=== PATIENT | female | born 1985 | race Hispanic/Latino ===

== ENCOUNTER 2021-11-08 17:40 | Emergency (ER) | payer SELFPAY ==
[2021-11-08] VITALS (10 sets, daily range): BP systolic 113–136; BP diastolic 86–95; PULSE 94–121; RESP 13–27; TEMP 37; O2SAT 99–100
--- NOTE | 2021-11-08 18:15 | PC.NURSE ---
PA at bedside for pt assessment.
--- NOTE | 2021-11-08 18:30 | ED.GENADULT ---
HPI - General Adult General Chief complaint: Unspecified Stated complaint: mouth sores Time Seen by Provider: 11/08/21 17:55 Source: patient Mode of arrival: ambulatory Limitations: no limitations History of Present Illness HPI narrative: This is a 35 year old female that presents to the ER for painful ulcerations noted in her mouth. Ongoing over the last couple of days. Reports ulcerations on the lip, tongue and some gingival irritation. Reports her only medical history is of asthma. Reports she was recently on Amoxicillin for a sore throat. No other new medications recently. Denies any concern for STDs. Denies fevers. Related Data Allergies Allergy/AdvReac Type Severity Reaction Status Date / Time No Known Allergies Allergy Verified 11/08/21 17:54 Review of Systems Review of Systems: CONSTITUTIONAL: Denies fever ENT: Reports sore throat All systems reviewed & are unremarkable except as noted in HPI and below PMFSH Past Medical History Medical History (Updated 11/08/21 @ 21:40 by Giana Alex PA-C) History of asthma Social History Social History (Updated 11/08/21 @ 18:34 by Giana Alex PA-C) Smoking status: Never smoker Exam Narrative: GENERAL: Well-appearing, well-nourished, and in no acute distress. HEAD: Normocephalic, atraumatic. EYES: EOMI. ENT: Nares clear, no rhinorrhea or epistaxis. Mucous membranes moist. Small ulcerations on an erythematous base noted to the lower lip and on the tongue. Gingival irritation is also noted. Oropharynx without tonsillar hypertrophy exudate or other lesions. Bilateral TMs pearly edge non-bulging NECK: Supple. No adenopathy or masses. CHEST: Clear to auscultation. No respiratory distress. No wheezes rales or rhonchi HEART: Regular rate and rhythm. No murmur heard. Normal peripheral pulses. EXTREMITIES: Normal range of motion. No edema. SKIN: Warm, dry NEURO: No focal deficits. Alert and oriented x3. PSYCH: Normal mood and affect Course Vital Signs Vital signs: Vital Signs Temperature 98.6 F 11/08/21 17:52 Pulse Rate 121 H 11/08/21 17:52 Respiratory Rate 16 11/08/21 17:52 Blood Pressure 136/92 H 11/08/21 17:52 Pulse Oximetry 100 11/08/21 17:52 Temperature 98.6 F 11/08/21 17:52 Pulse Rate 111 H 11/08/21 18:16 Respiratory Rate 27 H 11/08/21 18:16 Blood Pressure 113/95 H 11/08/21 18:15 Pulse Oximetry 99 11/08/21 18:16 Medical Decision Making MDM Narrative Medical decision making narrative: Patient presents to the emergency department for several ulcerations noted in the mouth. Reportedly is otherwise healthy largely, other than history of asthma. She is afebrile and nontoxic-appearing. Tachycardic upon arrival, this normalized without intervention. CBC shows mild normocytic anemia with hemoglobin of 11.3. Metabolic panel without concerning findings. HIV screen is negative. RPR and HSV culture was sent. She did not report any overt concerns for STDs. Patient will be treated for ulcerations with Magic mouth wash. Was instructed to have follow-up with primary care doctor and ENT. She was given warnings to return to the ER Vital Signs Vital Signs: Vital Signs Temperature 98.6 F 11/08/21 17:52 Pulse Rate 121 H 11/08/21 17:52 Respiratory Rate 16 11/08/21 17:52 Blood Pressure 136/92 H 11/08/21 17:52 Pulse Oximetry 100 11/08/21 17:52 Temperature 98.6 F 11/08/21 17:52 Pulse Rate 111 H 11/08/21 18:16 Respiratory Rate 27 H 11/08/21 18:16 Blood Pressure 113/95 H 11/08/21 18:15 Pulse Oximetry 99 11/08/21 18:16 Lab Data Lab results reviewed: Yes I reviewed the patient's lab results. Result diagrams: 11/08/21 18:46 11/08/21 18:46 Labs: Lab Results 11/08/21 11/08/21 11/08/21 Range/Units 18:46 18:46 18:46 WBC 5.8 (4.5-10.0) K/mm3 RBC 4.20 (4.2-5.4) M/mm3 Hgb 11.3 L (12.0-15.0) g/dL Hct 36.3 L (37.0-47.0) % MCV 86.4 (80-10
[2021-11-08 19:59] LABS: Basophils Percent Auto 0.3 % (0.2-1.2); Eosinophils Percent Auto 0.2 % (0-4.4); Hematocrit 36.3 % (37.0-47.0); Hemoglobin 11.3 g/dL (12.0-15.0); Immature Granulocyte Absolute 0.01 K/mm3 (0.00-0.031); Immature Granulocyte Percent A 0.2 % (0-0.5); Lymphocytes Absolute Auto 1.78 K/mm3 (0.9-3.2); Lymphocytes Percent Auto 30.7 % (18.3-44.2); Mean Corpuscular HGB Conc 31.1 g/dl (32-36); Mean Corpuscular Hemoglobin 26.9 pg (26-34); Mean Corpuscular Volume 86.4 fl (80-100); Mean Platelet Volume 12.3 fl (7.4-10.4); Monocytes Absolute Auto 0.4 K/mm3 (0.1-0.6); Monocytes Percent Auto 6.6 % (2.6-8.5); Neutrophils Absolute Auto 3.6 K/mm3 (1.3-6.7); Platelet Count Result 224 k/mm3 (150-375); Red Cell Distribution Width 13.9 % (11.5-14.5); White Blood Count 5.8 K/mm3 (4.5-10.0)
[2021-11-08 20:10] LABS: Alanine Aminotransferase 13 U/L (6-35); Albumin Level 4.4 g/dL (3.5-5.1); Alkaline Phosphatase 61 U/L (38-126); Anion Gap 7 mmol/L (8-16); Aspartate Amino Transferase 22 U/L (14-36); Bilirubin,Total 0.3 mg/dL (0.2-1.3); Blood Urea Nitrogen 11 mg/dL (7-17); Calcium 8.4 mg/dL (8.4-10.2); Carbon Dioxide 27 mmol/L (22-30); Chloride 104 mmol/L (98-107); Estimated CRCL calculation 114 ml/min; Estimated Glomerular Filt Rate > 60; Glucose 100 mg/dL (65-110); Sodium 138 mmol/L (137-145)
[2021-11-08 20:51] LABS: HIV 1/2 Ab P24 Ag Result Negative (Negative)
[2021-11-09 07:50] LABS: Rapid Plasma Reagin Non-Reactive (NonReactive)
== END 2021-11-08 21:51 | disposition home or self-care (01) ==
PROVIDERS: Physician Assistant; Emergency Provider Emergency Medicine
DX: K12.0 Recurrent oral aphthae (principal); J45.909 Unspecified asthma, uncomplicated
CPT/HCPCS: 36415; 80053; 85025; 86592; 86703; 87255; 99283; G0432

== ENCOUNTER 2022-05-29 09:45 | Emergency (ER) | payer SELFPAY ==
--- NOTE | ~2022-05-29 | CT_ITS ---
EXAMINATION: CT abdomen pelvis w con DATE: 05/29/2022 11:06 INDICATION: Left upper quadrant tenderness. TECHNIQUE: Computed tomography (CT) of the abdomen and pelvis was performed with 100 cc Omnipaque 350 intravenous contrast. The dose-length product was 186.37 mGy-cm. Automated exposure control and iter ative reconstruction technique were employed. COMPARISON: None. FINDINGS: Lung bases are unremarkable. Heart size normal. No significant pleural or pericardial effus ion. No significant vascular abnormality. No lymphadenopathy. Fatty infiltration of the liver. Spleen, pancreas, adrenal glands and right kidney are unremarkable. There is subcentimeter hypodensities of the left kidney, most likely benign, although too small to ch aracterize. Gallbladder is present. Nonobstructive bowel gas pattern. Endometrium is thickened measur ing 2.6 cm. Trace free fluid in the pelvis. There are are coarse calcifications in the right adnexa o f uncertain clinical significance. Mild lumbar spondylosis. IMPRESSION: 1. No acute abdominal abnormality. 2: Thickened endometrium measuring 2.6 cm with trace fluid in the adnexa. 3: Hepatic steatosis. Reviewed, dictated and finalized at location A. ER WORKER POWER UNIT OPERATOR
--- NOTE | ~2022-05-29 | US_ITS ---
EXAMINATION: US pelvic complete DATE: 05/29/2022 12:35 INDICATION: Pelvic pain. Comparison: CT dated 05/29/2022. TECHNIQUE: Multiple transabdominal sonographic images of the pelvis performed. Patient not sexually a ctive. No transvaginal examination performed. FINDINGS: The uterus measures 9.2 x 4.8 x 6 cm. The endometrial complex is not well delineated. There are right adnexal calcifications. The right ovary measures 2.4 x 1.8 x 1.3 cm. Small amount of right adnexal fluid. The left ovary measures 3.1 x 2.2 x 3.6 cm. There are small follicles in each o vary. Normal doppler signal in both ovaries. There is no free fluid in the pelvis. There are no abnormal masses seen on either side. IMPRESSION: 1. Trace fluid in the adnexa. Endometrium not well visualized for measurement. Reviewed, dictated and finalized at location A. IONAL BELT MOLD ASSEMBLER
[2022-05-29 09:48] VITALS: BP 131/91; PULSE 114; RESP 17; TEMP 37.1; O2SAT 100
--- NOTE | 2022-05-29 10:06 | ED.ABDPAIN ---
HPI - Abdominal Pain General Chief Complaint: Abdominal Pain Stated Complaint: Left Flank pain/ Pelvic Pain Time Seen by Provider: 05/29/22 09:48 History of Present Illness HPI narrative: Patient is a 36-year-old female who presents ER with abdominal pain and flank pain. Ongoing for 3 days. Increasing in intensity over the each day. Associate with diarrhea 3 times a day. Has some nausea. No urinary frequency urgency or dysuria. No vaginal bleeding or vaginal discharge. Has not found any alleviating factors. Related Data Allergies Allergy/AdvReac Type Severity Reaction Status Date / Time No Known Allergies Allergy Verified 11/08/21 17:54 Review of Systems Review of Systems: All systems reviewed & are unremarkable except as noted in HPI and below Constitutional: Constitutional: Denies chills, Denies fatigue and Denies fever(s) ENT: Denies nasal congestion and Denies sore throat Gastrointestinal: Gastrointestinal: Reports abdominal pain, Reports diarrhea, Reports nausea and Denies vomiting Genitourinary: Genitourinary: Denies nocturia, Denies dysuria and Reports flank pain PMFSH Past Medical History Medical History (Updated 05/29/22 @ 13:59 by Shay Flores MD) History of asthma Social History Social History (Updated 11/08/21 @ 18:34 by Giana Alex PA-C) Smoking status: Never smoker Exam Narrative: GENERAL: Well-appearing, well-nourished, and in no acute distress. HEAD: Normocephalic, atraumatic. EYES: PERRL and EOMI. ENT: Mucous membranes moist. CHEST: Clear to auscultation. No respiratory distress. HEART: Regular rate and rhythm. Normal peripheral pulses. ABDOMEN: Soft, tender palpation with guarding in the left upper quadrant and right lower quadrant nondistended. EXTREMITIES: Normal range of motion. No edema. SKIN: Warm, dry, no rash. NEURO: Alert and oriented x3. PSYCH: Normal mood and affect. Course Course Emergency Course: Pain resolved with morphine. Patient informed of results. Symptoms felt to be related to combination of diarrhea and ruptured ovarian cyst. Discharge home. Patient comfortable with plan and has no additional concerns. Patient was hydrated as well. Vital Signs Vital signs: Vital Signs Temperature 98.8 F 05/29/22 09:48 Pulse Rate 114 H 05/29/22 09:48 Respiratory Rate 17 05/29/22 09:48 Blood Pressure 131/91 H 05/29/22 09:48 Pulse Oximetry 100 05/29/22 09:48 Oxygen Delivery Room Air 05/29/22 09:48 Temperature 98.8 F 05/29/22 09:48 Pulse Rate 70 05/29/22 14:00 Respiratory Rate 16 05/29/22 14:00 Blood Pressure 132/70 05/29/22 14:00 Pulse Oximetry 98 05/29/22 14:00 Oxygen Delivery Room Air 05/29/22 09:48 MDM - Abdominal Pain Lab Data 05/29/22 10:06 05/29/22 10:06 Labs: Lab Results 05/29/22 05/29/22 05/29/22 Range/Units 10:06 10:06 10:15 WBC 7.7 (4.5-10.0) K/mm3 RBC 4.47 (4.2-5.4) M/mm3 Hgb 11.6 L (12.0-15.0) g/dL Hct 37.5 (37.0-47.0) % MCV 83.9 (80-100) fl MCH 26.0 (26-34) pg MCHC 30.9 L (32-36) g/dl RDW 13.6 (11.5-14.5) % Plt Count 281 (150-375) k/mm3 MPV 12.1 H (7.4-10.4) fl Immature Gran % (Auto) 0.3 (0-0.5) % Neut % (Auto) 73.3 H (45.5-73.1) % Lymph % (Auto) 19.6 (18.3-44.2) % [place] % (Auto) 5.6 (2.6-8.5) % Eos % (Auto) 0.7 (0-4.4) % Baso % (Auto) 0.5 (0.2-1.2) % Lymph # (Auto) 1.50 (0.9-3.2) K/mm3 [place] # (Auto) 0.4 (0.1-0.6) K/mm3 Eos # (Auto) 0.1 (0-0.3) K/mm3 Baso # (Auto) 0.0 (0.0-0.1) K/mm3 Abs Immat Gran (auto) 0.02 (0.00-0.031) K/mm3 Absolute Neuts (auto) 5.6 (1.3-6.7) K/mm3 Absolute Nucleated RBC 0.0 (0.0-0.012) K/mm3 Nucleated RBC % 0.0 (0.0-0.2) % Sodium 138 (137-145) mmol/L Potassium 3.8 (3.4-5.0) mmol/L Chloride 105 (98-107) mmol/L Carbon Dioxide 26 (22-30) mmol/L Anion Gap 7 L (8-16) mmol/L BUN 15 (7-17
[2022-05-29] MEDS: SODIUM CHLORIDE 0.9% IV 1,000 ML 999 ML IV CONT (10:30)
[2022-05-29 10:31] LABS: Basophils Percent Auto 0.5 % (0.2-1.2); Eosinophils Absolute Auto 0.1 K/mm3 (0-0.3); Eosinophils Percent Auto 0.7 % (0-4.4); Hematocrit 37.5 % (37.0-47.0); Hemoglobin 11.6 g/dL (12.0-15.0); Immature Granulocyte Absolute 0.02 K/mm3 (0.00-0.031); Immature Granulocyte Percent A 0.3 % (0-0.5); Lymphocytes Percent Auto 19.6 % (18.3-44.2); Mean Corpuscular HGB Conc 30.9 g/dl (32-36); Mean Corpuscular Volume 83.9 fl (80-100); Mean Platelet Volume 12.1 fl (7.4-10.4); Monocytes Absolute Auto 0.4 K/mm3 (0.1-0.6); Monocytes Percent Auto 5.6 % (2.6-8.5); Neutrophils Absolute Auto 5.6 K/mm3 (1.3-6.7); Neutrophils Percent Auto 73.3 % (45.5-73.1); Platelet Count Result 281 k/mm3 (150-375); Red Blood Count 4.47 M/mm3 (4.2-5.4); Red Cell Distribution Width 13.6 % (11.5-14.5); White Blood Count 7.7 K/mm3 (4.5-10.0)
[2022-05-29 10:37] LABS: Appearance Urine Slightly Cloudy (Clear); Bilirubin Urine 1+ (Negative); Blood Urine Negative (Negative); Color Urine Yellow (Yellow); Glucose Urine UA Negative (Negative); Ketones Urine 3+ mg/dL (Negative); Leukocyte Esterase Ur Negative LEU/UL (Negative); Nitrate Urine Negative (Negative); Protein Urine Negative (Negative); Specific Grav Ur 1.025 (1.001-1.035); Urobilinogen Urine 0.2 mg/dL (<2.0); pH Urine 5.5 (5.0-9.0)
[2022-05-29] MEDS: ONDANSETRON INJ 4 MG/2 ML VIAL IV PUSH (10:37)
[2022-05-29] MEDS: MORPHINE SULFATE (*CRX) 4 MG/ML INJ IV PUSH (10:38)
[2022-05-29 10:41] LABS: Alanine Aminotransferase 15 U/L (6-35); Albumin Level 4.4 g/dL (3.5-5.1); Alkaline Phosphatase 74 U/L (38-126); Anion Gap 7 mmol/L (8-16); Aspartate Amino Transferase 30 U/L (14-36); Blood Urea Nitrogen 15 mg/dL (7-17); Calcium 8.8 mg/dL (8.4-10.2); Carbon Dioxide 26 mmol/L (22-30); Chloride 105 mmol/L (98-107); Estimated CRCL calculation 96 ml/min; Estimated Glomerular Filt Rate > 60; Glucose 102 mg/dL (65-110); Lipase 393 U/L (23-300); Potassium 3.8 mmol/L (3.4-5.0); Sodium 138 mmol/L (137-145)
[2022-05-29 10:44] LABS: Add Urine Microscopic? YES; Mucus Urine Heavy /lpf; RBC Urine 0-2 /hpf (0-2); Squamous Epithelial Cell Urine Many /hpf (Few); Transitional Epi Cells Urine Rare /hpf (None Seen); WBC Urine 0-3 /hpf
[2022-05-29 13:15] VITALS: BP 120/70; PULSE 98; RESP 16; O2SAT 100
[2022-05-29 14:20] VITALS: BP 124/70; PULSE 70; RESP 16; O2SAT 98
== END 2022-05-29 14:20 | disposition home or self-care (01) ==
PROVIDERS: Emergency Provider Emergency Medicine
DX: N83.201 Unspecified ovarian cyst, right side (principal); J45.909 Unspecified asthma, uncomplicated; K76.0 Fatty (change of) liver, not elsewhere classified
CPT/HCPCS: 36415; 74177; 76856; 80053; 81001; 81025; 83690; 85025; 96361; 96374; 96375; 99284; J2270; J2405; J7030; Q9967

== ENCOUNTER 2022-07-01 19:06 | Emergency (ER) | payer MEDICAID, SELFPAY ==
[2022-07-01] VITALS (7 sets, daily range): BP systolic 113–142; BP diastolic 76–92; PULSE 87–144; RESP 14–25; TEMP 36.7–36.8; O2SAT 100
--- NOTE | ~2022-07-01 | XR_ITS ---
EXAMINATION: XR chest 2V DATE: 07/01/2022 23:48 INDICATION: Cough. Dyspnea. TECHNIQUE: Frontal and lateral views of the chest were obtained. COMPARISON: Chest CT 07/02/2022 FINDINGS: There is no pneumonia, pleural effusion, or pneumothorax. The heart size is normal. There i s mild pectus excavatum. IMPRESSION: 1. No acute cardiopulmonary disease. Reviewed, dictated and finalized at location A. ON LAP MACHINE TENDER
--- NOTE | ~2022-07-01 | CT_ITS ---
EXAMINATION: CTA chest PE protocol DATE: 07/02/2022 01:12 INDICATION: Dyspnea. Cough. TECHNIQUE: Computed tomography angiography (CTA) of the chest was performed with 100 mL Omnipaque-350 intravenous contrast timed to evaluate the pulmonary arteries. Coronal maximum intensity projection 3D-reconstructions were created by the technologist. Automated exposure control and iterative reconst ruction technique were employed. The dose-length product was 158.57 mGy-cm. COMPARISON: CT abdomen and pelvis 05/29/2022 FINDINGS: There is no pneumonia or pleural effusion. The heart size is normal. No pericardial effusio n. There is no pulmonary embolus. There is mild pectus excavatum. IMPRESSION: 1. No pulmonary embolus. Reviewed, dictated and finalized at location A. INE PACK ASSEMBLER IMPRESSION: 1. No pulmonary embolus.
--- NOTE | 2022-07-01 19:12 | ECG_ITS ---
Measurements Intervals [place] Rate: 123 P: 70 DC: 141 QRS: 47 QRSD: 86 T: 68 QT: 337 QTc: 483 Interpretive Statements SINUS TACHYCARDIA BORDERLINE ST-T WAVE ABNORMALITY- INF/HIGH LAT LEADS BASELINE ARTIFACT- I, II, AVR, AVL, AVF ABNORMAL ECG NO PREVIOUS ECG AVAILABLE FOR COMPARISON Electronically Signed On 07-02-2022 14:31:07 GLOVE OPERATOR by Cristian Helm D.O.
[2022-07-01 19:34] LABS: Basophils Percent Auto 0.4 % (0.2-1.2); Eosinophils Absolute Auto 0.1 K/mm3 (0-0.3); Eosinophils Percent Auto 0.6 % (0-4.4); Hematocrit 35.2 % (37.0-47.0); Hemoglobin 10.7 g/dL (12.0-15.0); Immature Granulocyte Absolute 0.02 K/mm3 (0.00-0.031); Immature Granulocyte Percent A 0.3 % (0-0.5); Lymphocytes Absolute Auto 2.02 K/mm3 (0.9-3.2); Lymphocytes Percent Auto 25.6 % (18.3-44.2); Mean Corpuscular HGB Conc 30.4 g/dl (32-36); Mean Corpuscular Hemoglobin 25.5 pg (26-34); Mean Platelet Volume 12.1 fl (7.4-10.4); Monocytes Absolute Auto 0.5 K/mm3 (0.1-0.6); Monocytes Percent Auto 6.2 % (2.6-8.5); Neutrophils Absolute Auto 5.3 K/mm3 (1.3-6.7); Neutrophils Percent Auto 66.9 % (45.5-73.1); Platelet Count Result 323 k/mm3 (150-375); Red Blood Count 4.19 M/mm3 (4.2-5.4); Red Cell Distribution Width 13.9 % (11.5-14.5); White Blood Count 7.9 K/mm3 (4.5-10.0)
[2022-07-01 19:51] LABS: Alanine Aminotransferase 18 U/L (6-35); Albumin Level 4.9 g/dL (3.5-5.1); Alkaline Phosphatase 80 U/L (38-126); Anion Gap 10 mmol/L (8-16); Aspartate Amino Transferase 25 U/L (14-36); Bilirubin,Total 0.5 mg/dL (0.2-1.3); Blood Urea Nitrogen 16 mg/dL (7-17); Calcium 9.4 mg/dL (8.4-10.2); Carbon Dioxide 27 mmol/L (22-30); Chloride 100 mmol/L (98-107); Estimated CRCL calculation 83 ml/min; Estimated Glomerular Filt Rate > 60; Glucose 174 mg/dL (65-110); Potassium 3.8 mmol/L (3.4-5.0); Sodium 137 mmol/L (137-145)
--- NOTE | 2022-07-01 23:22 | ED.URI ---
HPI - URI/Sore Throat General Chief Complaint: Upper Respiratory Infection Stated Complaint: ST, SOB, coughing Time Seen by Provider: 07/01/22 22:50 History of Present Illness HPI Narrative: 36-year-old female with a history of asthma reports for nonproductive cough, sore throat, nasal congestion, shortness of breath for 4 days. Patient denies fever, body aches, chills, abdominal pain, nausea, vomiting, diarrhea. Denies no known sick contacts, chest pain, back pain, urinary complaints. She reports she is out of her inhaler and has not been taking it. She does not have a primary care provider. Related Data Allergies Allergy/AdvReac Type Severity Reaction Status Date / Time No Known Allergies Allergy Verified 07/01/22 22:57 Review of Systems Review of Systems: CONSTITUTIONAL: Denies fever, chills EYES: Denies visual changes, redness, or discharge. ENT: Denies rhinorrhea, congestion, sore throat, or otalgia. CARDIOVASCULAR: Denies chest pain, palpitations, or edema. RESPIRATORY: See HPI GASTROINTESTINAL: Denies abdominal pain, nausea, vomiting, or diarrhea. GENITOURINARY: Denies dysuria or hematuria. SKIN: Denies rash or itching. MUSCULOSKELETAL: Denies back pain, joint pain, or myalgia. NEUROLOGIC: Denies headache, numbness, dizziness, or weakness. PSYCHIATRIC: Denies anxiety or depression. [facility] Past Medical History Medical History History of asthma Social History Social History Smoking status: Never smoker Exam Narrative: GENERAL: Well-appearing, well-nourished, and in no acute distress. HEAD: Normocephalic, atraumatic. EYES: PERRLA and EOMI. ENT: Nares clear, no rhinorrhea or epistaxis. Mucous membranes moist. Oropharynx without tonsillar hypertrophy exudate or other lesions. Posterior pharynx with mild erythema. External ear canals with cerumen. TMs edge, nonbulging NECK: Supple. No adenopathy or masses. No carotid bruits or JVD CHEST: Clear to auscultation. No respiratory distress. No wheezes rales or rhonchi HEART: Regular rhythm. Tachycardic. No murmur heard. Normal peripheral pulses. ABDOMEN: Soft, nontender, nondistended, normal active bowel sounds. EXTREMITIES: Normal range of motion. No edema. SKIN: Warm, dry, no rash. NEURO: No focal deficits. Alert and oriented x3. Strength 5 out of 5 in all extremities. Sensation intact. PSYCH: Normal mood and affect. Course Vital Signs Vital signs: Vital Signs Temperature 98.2 F 07/01/22 19:07 Pulse Rate 144 H 07/01/22 19:07 Respiratory Rate 16 07/01/22 19:07 Blood Pressure 142/92 H 07/01/22 19:07 Pulse Oximetry 100 07/01/22 19:07 Oxygen Delivery Room Air 07/01/22 19:07 Temperature 98.1 F 07/01/22 21:25 Pulse Rate 103 H 07/02/22 02:59 Respiratory Rate 19 07/02/22 02:59 Blood Pressure 110/86 07/02/22 02:59 Pulse Oximetry 100 07/02/22 02:59 Oxygen Delivery Room Air 07/01/22 23:18 MDM - URI/Sore Throat MDM Narrative Medical decision making narrative: 36-year-old female with a history of asthma reports for nonproductive cough, sore throat, nasal congestion, shortness of breath for 4 days. Denies history of fever and remains afebrile throughout ED visit. CBC without leukocytosis. Normocytic anemia present. Hemoglobin stable at 10.7. CMP without electrolyte abnormalities. Flu and COVID-negative. Chest x-ray without acute cardiopulmonary findings. CTA obtained due to tachycardia, tachypnea, elevated D-dimer. No PE, no focal infiltrates or effusions. Bedside urine negative. Patient received 1 L normal saline, benzonatate, Solu-Medrol, magnesium, DuoNeb in the ED with improvement of cough, shortness of breath, and tachycardia. Discussed lab and imaging findings with the patient. Patient likely has viral bronchitis/URI versus asthma exacerbation. Inhaler, steroids and benzonatate sent
[2022-07-01] MEDS: ALBUTEROL SULFATE NEB 2.5 MG/3 ML INH INHALATION (23:28)
[2022-07-01] MEDS: IPRATROPIUM BR 0.02% INH SOLN 0.5 MG/2.5 ML VIAL INHALATION (23:28)
[2022-07-02] VITALS (10 sets, daily range): BP systolic 102–114; BP diastolic 71–86; PULSE 99–111; RESP 13–23; O2SAT 100
[2022-07-02] MEDS: methylPREDNISolone SOD SUCC 125 MG VIAL IV PUSH (00:16)
[2022-07-02] MEDS: MAGNESIUM SULF 2 GM/WATER 50ML 2 GM/50 ML BAG IVPB (00:16)
[2022-07-02] MEDS: BENZONATATE 100 MG CAPSULE 200 MG PO (00:17)
[2022-07-02 00:29] LABS: Influenza A QL RT-PCR Negative (Negative); Influenza B QL RT-PCR Negative (Negative); SARS-CoV-2 RNA PCR Negative
== END 2022-07-02 03:00 | disposition home or self-care (01) ==
PROVIDERS: Emergency Medicine; Emergency Provider Physician Assistant
DX: J06.9 Acute upper respiratory infection, unspecified (principal); J45.909 Unspecified asthma, uncomplicated; Z20.822 Contact with and (suspected) exposure to COVID-19
CPT/HCPCS: 36415; 71046; 71275; 80053; 81025; 85025; 85380; 87636; 93005; 94640; 96365; 96375; 99284; A9270; J2930; J3475; Q9967

== ENCOUNTER 2022-11-29 18:03 | Emergency (ER) | payer BC, SELFPAY ==
--- NOTE | ~2022-11-29 | US_ITS ---
EXAMINATION: US pelvic complete w TV DATE: 11/29/2022 21:41 INDICATION: L adnexal abnormality, LLQ pain, dysuria TECHNIQUE: Multiple transabdominal sonographic images of the pelvis were obtained. Transvaginal exami nation declined. COMPARISON: CT abdomen and pelvis, same date. FINDINGS: Uterus: 8.2 x 5.0 x 6.8 cm. Endometrial complex measures 14 mm. Right Ovary: 2.8 x 2.1 x 2.0 cm. Vascular flow is present. No adnexal mass. Left Ovary: 4.8 x 3.3 x 3.9 cm. Vascular flow is present. 3.1 cm simple ovarian cyst. There is small volume free fluid in the pelvis, within physiologic range. IMPRESSION: Normal transabdominal pelvic sonogram findings. Endometrial thickness is within normal limits for the secretory phase, correlate with current menstru al phase. No sonographic evidence of left hydrosalpinx. Prior CT findings likely related to a combination of ad jacent fluid-filled bowel and free pelvic fluid. Reviewed, dictated and finalized at location K. IMPRESSION: Normal transabdominal pelvic sonogram findings. Endometrial thickness is within normal limits for the secretory phase, correlat e with current menstrual phase. No sonographic evidence of left hydrosalpinx. Prior CT findings likely related to a combination of adjacent fluid-filled bowel and free pelvic fluid.
--- NOTE | ~2022-11-29 | CT_ITS ---
EXAMINATION: CT abdomen pelvis w con DATE: 11/29/2022 19:46 INDICATION: left flank/lower abd pain, elevated lipase TECHNIQUE: Computed tomography (CT) of the abdomen and pelvis was performed with 100 mL Omnipaque-350 intravenous contrast. Automated exposure control and iterative reconstruction technique were employe d. The dose-length product was 247.88 mGy-cm. COMPARISON: 05/29/2022 CT abdomen pelvis and ultrasound pelvis. FINDINGS: Lower thorax: Unremarkable Liver: Normal. Biliary/Gallbladder: Gallbladder is normal. No bile duct dilation. Pancreas: No mass or duct dilation. Spleen: Normal. Adrenals:No mass. Kidneys: No mass, stone, or hydronephrosis. GI tract: No small or large bowel dilation. Normal appendix. Mesentery/Peritoneum: No ascites, mass, or free air. Retroperitoneum: No mass. Pelvis: Persistent endometrial thickening to 2.4 cm. Normal urinary bladder. Cystic, possibly somewha t tubular structure in the left adnexa with mild inflammatory change. The right ovary appears normal. Chronic coarse calcification in the right adnexa. Soft Tissues: Soft tissues and body wall unremarkable. Bones: No acute osseous finding. IMPRESSION: Persistent endometrial thickening. Possible left hydrosalpinx/salpingitis. Recommend pelvic ultrasoun d for further evaluation Reviewed, dictated and finalized at location K. IMPRESSION: Persistent endometrial thickening. Possible left hydrosalpinx/salpingitis. Phill mmend pelvic ultrasound for further evaluation
[2022-11-29 18:04] VITALS: BP 116/68; PULSE 118; RESP 20; TEMP 36.8; O2SAT 100
[2022-11-29 18:24] LABS: Basophils Absolute Auto 0.1 K/mm3 (0.0-0.1); Basophils Percent Auto 0.6 % (0.2-1.2); Eosinophils Absolute Auto 0.1 K/mm3 (0-0.3); Eosinophils Percent Auto 0.9 % (0-4.4); Hematocrit 37.8 % (37.0-47.0); Hemoglobin 11.7 g/dL (12.0-15.0); Immature Granulocyte Absolute 0.03 K/mm3 (0.00-0.031); Immature Granulocyte Percent A 0.3 % (0-0.5); Lymphocytes Percent Auto 21.6 % (18.3-44.2); Mean Corpuscular Hemoglobin 26.1 pg (26-34); Mean Corpuscular Volume 84.2 fl (80-100); Monocytes Absolute Auto 0.6 K/mm3 (0.1-0.6); Monocytes Percent Auto 5.3 % (2.6-8.5); Neutrophils Absolute Auto 8.3 K/mm3 (1.3-6.7); Neutrophils Percent Auto 71.3 % (45.5-73.1); Platelet Count Result 301 k/mm3 (150-375); Red Blood Count 4.49 M/mm3 (4.2-5.4); Red Cell Distribution Width 16.1 % (11.5-14.5); White Blood Count 11.6 K/mm3 (4.5-10.0)
[2022-11-29 18:29] LABS: Appearance Urine Clear (Clear); Bacteria Urine None Seen /hpf; Bilirubin Urine Negative (Negative); Blood Urine Negative (Negative); Color Urine Yellow (Yellow); Glucose Urine UA Negative (Negative); Ketones Urine Trace mg/dL (Negative); Leukocyte Esterase Ur 1+ LEU/UL (Negative); Nitrate Urine Negative (Negative); Non Pathogenic Casts 0-2; Protein Urine Negative (Negative); RBC Urine 0-2 /hpf (0-2); Specific Grav Ur 1.024 (1.001-1.035); Squamous Epithelial Cell Urine Occasional /hpf (Few); pH Urine 5.5 (5.0-9.0)
[2022-11-29 18:31] LABS: Alanine Aminotransferase 17 U/L (6-35); Albumin Level 4.6 g/dL (3.5-5.1); Alkaline Phosphatase 60 U/L (38-126); Anion Gap 7 mmol/L (8-16); Aspartate Amino Transferase 27 U/L (14-36); Bilirubin,Total 0.5 mg/dL (0.2-1.3); Blood Urea Nitrogen 18 mg/dL (7-17); Carbon Dioxide 23 mmol/L (22-30); Chloride 104 mmol/L (98-107); Estimated CRCL calculation 83 ml/min; Estimated Glomerular Filt Rate > 60; Glucose 107 mg/dL (65-110); Lipase 828 U/L (23-300); Potassium 3.8 mmol/L (3.4-5.0); Sodium 134 mmol/L (137-145)
[2022-11-29 18:45] LABS: Add Urine Microscopic? YES
[2022-11-29 19:14] VITALS: BP 137/91; PULSE 109; RESP 16; TEMP 36.8; O2SAT 100
[2022-11-29] MEDS: SODIUM CHLORIDE 0.9% IV 1,000 ML 999 ML IV CONT (19:33)
[2022-11-29] MEDS: ONDANSETRON INJ 4 MG/2 ML VIAL IV PUSH (19:34)
[2022-11-29] MEDS: MORPHINE SULFATE (*CRX) 4 MG/ML INJ IV PUSH (19:34)
--- NOTE | 2022-11-29 19:54 | ED.ABDPAIN ---
HPI - Abdominal Pain General Chief Complaint: Abdominal Pain Stated Complaint: abdominal pain Time Seen by Provider: 11/29/22 18:35 Source: patient Mode of arrival: ambulatory Limitations: no limitations History of Present Illness HPI narrative: Patient is a 36-year-old female who presents to the ED with report of left abdominal and flank pain. Patient reports having pain in her left-sided abdomen, left lower back for the last 3 days. Pain became much more severe and constant today. She tried taking Tylenol around 2pm today without relief. Patient also reports dysuria and diarrhea, denies nausea, vomiting, fevers, hematuria. Denies history of kidney stones. Patient denies ever having pain like this before. Per records, she has complained of similar symptoms at her ED visit in May which was related to a ruptured ovarian cyst. She has not had any vaginal bleeding, vaginal discharge, concern for STDs. Related Data Allergies Allergy/AdvReac Type Severity Reaction Status Date / Time No Known Allergies Allergy Verified 11/29/22 18:03 Review of Systems Review of Systems: CONSTITUTIONAL: Denies fever, chills, or sweats. CARDIOVASCULAR: Denies chest pain. RESPIRATORY: Denies dyspnea. GASTROINTESTINAL: See HPI. GENITOURINARY: See HPI. SKIN: Denies rash or itching. MUSCULOSKELETAL: Denies back pain, joint pain, or myalgia. All systems reviewed & are unremarkable except as noted in HPI and below PMFSH Past Medical History Medical History History of asthma Social History Social History Smoking status: Never smoker Exam Narrative: GENERAL: Uncomfortable appearing, well-nourished, non-toxic, in mild acute distress d/t pain. HEAD: Normocephalic, atraumatic. NECK: Supple. No adenopathy, no masses. RESPIRATORY: Airway patent, respirations nonlabored. Clear to auscultation bilaterally, no rales, rhonchi, wheezing. CARDIOVASCULAR: Regular rate and rhythm without murmurs, rubs, or gallops. Radial pulses 2+ and equal bilaterally. ABDOMINAL: Soft, tenderness in left upper abdomen, left mid abdomen, left flank, nondistended, no hepatosplenomegaly. Normoactive BS. MUSCULOSKELETAL: Moves all extremities. Strength/ROM intact without gross deformities. SKIN: Warm, dry, normal color. No rashes. NEURO: A&O X3. Speech clear. Cranial nerves II-XII grossly intact. Steady gait. No ataxic movements. PSYCHIATRIC: Anxious, tearful. Normal interaction. Course Vital Signs Vital signs: Vital Signs Temperature 98.3 F 11/29/22 18:04 Pulse Rate 118 H 11/29/22 18:04 Respiratory Rate 20 11/29/22 18:04 Blood Pressure 116/68 11/29/22 18:04 Pulse Oximetry 100 11/29/22 18:04 Oxygen Delivery Room Air 11/29/22 18:04 Temperature 98.2 F 11/29/22 22:54 Pulse Rate 85 11/29/22 22:54 Respiratory Rate 15 11/29/22 22:54 Blood Pressure 117/82 11/29/22 22:54 Pulse Oximetry 100 11/29/22 22:54 Oxygen Delivery Room Air 11/29/22 18:04 MDM - Abdominal Pain MDM Narrative Medical decision making narrative: Patient very uncomfortable upon my evaluation, tachycardic, tachypneic, tearful. CBC with leukocytosis of 11.6. Stable H&H. Lipase elevated to 826. No epigastric tenderness. LFTs otherwise normal. Urinalysis appears infectious with 1+ leuk esterase, 11-20 WBC. Sent for culture. Will treat as patient reporting dysuria. CT scan of abdomen pelvis obtained to look for stone. Showing endometrial thickening, consistent with previous records, possible hydrosalpinx/salpingitis. No comment on pancreatitis. Pelvic US obtained and showing no evidence of hydrosalpinx, thought to be related to free fluid/fluid-filled bowels. Ultrasound does show a left ovarian cyst, normal vascular flow noted to bilateral ovaries. Does also show slight thickening of endometrium. Patient reports her menstrual c
[2022-11-29 20:51] VITALS: BP 118/83; PULSE 94; RESP 15; O2SAT 100
[2022-11-29 22:29] VITALS: BP 124/87; PULSE 86; RESP 15; O2SAT 100
[2022-11-29 22:54] VITALS: BP 117/82; PULSE 85; RESP 15; TEMP 36.8; O2SAT 100
== END 2022-11-29 22:55 | disposition home or self-care (01) ==
PROVIDERS: Emergency Medicine; Emergency Provider Physician Assistant; PCP Physician Assistant
DX: N83.209 Unspecified ovarian cyst, unspecified side (principal); N39.0 Urinary tract infection, site not specified; R19.7 Diarrhea, unspecified
CPT/HCPCS: 36415; 74177; 76830; 76856; 80053; 81001; 81025; 83690; 85025; 87086; 96361; 96374; 96375; 99284; J2270; J2405; J7030; Q9967

== ENCOUNTER 2023-04-29 15:54 | Emergency (ER) | payer BC, SELFPAY ==
[2023-04-29 16:11] VITALS: BP 129/82; PULSE 97; RESP 16; TEMP 36.9; O2SAT 99
--- NOTE | 2023-04-29 17:01 | ED.DENTAL ---
HPI - Dental/Oral General Chief complaint: Dental/Oral Stated complaint: tooth pain right side Time Seen by Provider: 04/29/23 17:02 Source: patient Mode of arrival: ambulatory Limitations: no limitations History of Present Illness HPI Narrative: 37-year-old female presents with right upper dental pain since yesterday. Went to [facility] dental walk-in clinic today and was told needs antibiotic. Scheduled for follow-up appointment on Monday. Afebrile. No significant swelling noted. All systems reviewed and negative except as noted above. Related Data Allergies Allergy/AdvReac Type Severity Reaction Status Date / Time No Known Allergies Allergy Verified 11/29/22 18:03 Review of Systems Review of Systems: CONSTITUTIONAL: Denies fever, chills, or sweats. EYES: Denies visual changes, redness, or discharge. ENT: Denies rhinorrhea, congestion, sore throat, or otalgia. Reports right upper dental pain. CARDIOVASCULAR: Denies chest pain, palpitations, or edema. RESPIRATORY: Denies cough or dyspnea. GASTROINTESTINAL: Denies abdominal pain, nausea, vomiting, or diarrhea. GENITOURINARY: Denies dysuria or hematuria. SKIN: Denies rash or itching. MUSCULOSKELETAL: Denies back pain, joint pain, or myalgia. NEUROLOGIC: Denies headache, numbness, or weakness. PSYCHIATRIC: Denies anxiety or depression. All other systems reviewed are negative, except as documented in HPI. PMFSH Past Medical History Medical History History of asthma Social History Social History Smoking status: Never smoker Comments At time of signature, agree with nursing past medical, surgical, social and family history. There is no relevant family history pertinent to the presenting complaint. Exam Narrative: GENERAL: This is a well-nourished, well-developed patient, in no apparent distress. HEAD: normocephalic, atraumatic. EYES: PERRL. Sclera clear/white. Vision is grossly intact. EARS: External ears normal NOSE: External nose normal MOUTH: tooth #2 decayed, possible cavity. no significant swelling noted. no abscess noted. NECK: Neck supple, non-tender without lymphadenopathy, masses or thyromegaly. CARDIOVASCULAR: Regular rate and rhythm without murmurs, gallops, or rubs. RESPIRATORY: Clear to auscultation. Breath sounds equal bilaterally. No wheezes, rales, or rhonchi. SKIN: warm, Dry, intact with no suspicious lesions or rash, good texture and turgor. NEURO: awake, alert, and oriented to person, place and time. There were no obvious focal neurologic abnormalities. EXTREMITIES: No joint tenderness, effusion, or edema noted. Course Course Level of Care: Express Care Visit Vital Signs Vital signs: Vital Signs Temperature 36.9 C 04/29/23 16:11 Pulse Rate 97 04/29/23 16:11 Respiratory Rate 16 04/29/23 16:11 Blood Pressure 129/82 04/29/23 16:11 Pulse Oximetry 99 04/29/23 16:11 Oxygen Delivery Room Air 04/29/23 16:11 Temperature 36.9 C 04/29/23 16:11 Pulse Rate 97 04/29/23 16:11 Respiratory Rate 16 04/29/23 16:11 Blood Pressure 129/82 04/29/23 16:11 Pulse Oximetry 99 04/29/23 16:11 Oxygen Delivery Room Air 04/29/23 16:11 Reviewed MDM - Dental/Oral MDM Narrative Medical decision making narrative: Patient is aware of diagnosis, understands and agrees to treatment plan. Anticipatory guidance given. Patient agrees to follow-up as directed and is aware of reasons to seek care at the emergency department. Portions of this record may have been created with voice recognition software Differential Diagnosis Differential diagnosis: Likely toothache Discharge Plan Discharge Clinical Impression: Toothache Patient Disposition: Home, Self-Care Condition: Stable Instructions: Antibiotic Form, Toothache (ED) Additional Instructions: Take medication
== END 2023-04-29 17:14 | disposition home or self-care (01) ==
PROVIDERS: Emergency Provider Nurse Practitioner Family; PCP Physician Assistant
DX: K08.89 Other specified disorders of teeth and supporting structures (principal); J45.909 Unspecified asthma, uncomplicated
CPT/HCPCS: 99213; G0463

== ENCOUNTER 2024-04-20 11:55 | Emergency (ER) | payer BC, SELFPAY ==
[2024-04-20] VITALS (13 sets, daily range): BP systolic 116–172; BP diastolic 63–95; PULSE 81–114; RESP 14–19; TEMP 36.6; O2SAT 92–100
--- NOTE | ~2024-04-20 | CT_ITS ---
EXAMINATION: CT abdomen pelvis w con DATE: 04/20/2024 14:11 INDICATION: Left upper quadrant pain TECHNIQUE: Computed tomography (CT) of the abdomen and pelvis was performed with 100 cc Omnipaque 350 intravenous contrast. Automated exposure control and iterative reconstruction technique were employe d. Exam dose: 262.72 mGy-cm total exam DLP. COMPARISON: None. FINDINGS: The lung bases are clear. Normal heart size. No pericardial or pleural effusion. No hepatic, splenic, pancreatic, adrenal or renal space occupying mass lesion. No gallbladder wall thickening or abnormal pericholecystic fluid or stranding. No bile duct or pancr eatic duct dilatation. No urinary tract calculus or hydroureteronephrosis. 3.6 x 4.2 cm left ovarian cyst. The uterus and adnexal areas and urinary bladder are otherwise unrema rkable. Normal caliber of the abdominal aorta. No intraperitoneal or retroperitoneal mass lesion or lymphade nopathy. No suspicious osteolytic or osteoblastic lesion. IMPRESSION: 3.6 x 4.2 cm left ovarian cyst Reviewed, dictated and finalized at [facility]. Reviewed, dictated and finalized at location [facility]. PROCESSOR
--- NOTE | ~2024-04-20 | XR_ITS ---
EXAMINATION: XR chest 1V portable DATE: 04/20/2024 12:40 INDICATION: Left upper quadrant abdominal pain. TECHNIQUE: A single frontal view of the chest was obtained. COMPARISON: Chest 2 views 07/01/2022, chest CT 07/02/2022 FINDINGS: There is no pneumonia, pleural effusion, or pneumothorax. The heart size is normal. IMPRESSION: 1. No acute cardiopulmonary disease. Reviewed, dictated and finalized at location [facility]. [employer]TACTS ADJUSTER
--- NOTE | ~2024-04-20 | US_ITS ---
US pelvic complete DATE: 04/20/2024 16:30 INDICATION: Left-sided abdominal pain. Ovarian cyst. Rule out torsion. TECHNIQUE: Real-time imaging via transabdominal approach COMPARISON: 04/20/2024 CT abdomen pelvis FINDINGS: The uterus measures 10.3 cm sagittal, 0.7 cm AP and 5.0 cm transverse dimension. Central endometrial echo complex measures 6 mm AP dimension. Right ovary measures 2.6 x 2.4 x 1.8 cm, with normal vascular flow. The left ovary measures 4.6 x 4.5 x 4.4 cm, with vascular flow. There is a complicated 3.2 x 3.5 cm left ovarian cyst, likely a hemorrhagic cyst. IMPRESSION: Ovarian cyst; no ovarian torsion is evident Reviewed, dictated and finalized at [facility]. Reviewed, dictated and finalized at location [facility]. ER ON
[2024-04-20 12:16] LABS: Basophils Percent Auto 0.3 % (0.2-1.2); Eosinophils Percent Auto 0.3 % (0-4.4); Hematocrit 38.7 % (37.0-47.0); Hemoglobin 12.1 g/dL (12.0-15.0); Immature Granulocyte Absolute 0.02 K/mm3 (0.00-0.031); Immature Granulocyte Percent A 0.2 % (0-0.5); Lymphocytes Absolute Auto 1.45 K/mm3 (0.9-3.2); Lymphocytes Percent Auto 15.7 % (18.3-44.2); Mean Corpuscular HGB Conc 31.3 g/dl (32-36); Mean Corpuscular Hemoglobin 27.4 pg (26-34); Mean Corpuscular Volume 87.6 fl (80-100); Mean Platelet Volume 11.3 fl (7.4-10.4); Monocytes Absolute Auto 0.4 K/mm3 (0.1-0.6); Monocytes Percent Auto 4.2 % (2.6-8.5); Neutrophils Absolute Auto 7.3 K/mm3 (1.3-6.7); Neutrophils Percent Auto 79.3 % (45.5-73.1); Platelet Count Result 285 k/mm3 (150-375); Red Blood Count 4.42 M/mm3 (4.2-5.4); Red Cell Distribution Width 14.9 % (11.5-14.5); White Blood Count 9.2 K/mm3 (4.5-10.0)
--- NOTE | 2024-04-20 12:18 | ED_ITS ---
HPI - Abdominal Pain General Chief Complaint: Abdominal Pain Stated Complaint: L rib pain Time Seen by Provider: 04/20/24 11:59 History of Present Illness HPI narrative: 38-year-old female presenting with multiple complaints. She presents with her family members who provides collateral formation. Patient states that she was driving and suddenly had a sharp sensation of pain in her left upper quadrant left abdomen underneath her left rib cage. She felt hot, feeling she was going to pass out, had some numbness in both her hands and had to machine puller over. She states she was otherwise in her normal state of health but this is been a problem for several months to years according to the family. Patient presents complaining of left-sided abdominal pain as well as a headache. She states she has a pressure in her head and has been having diarrhea since Monday. No recent illnesses or hospital visits. She states she has history of anemia. She states she has had ultrasounds of her abdomen before but never had a CT scans try and find a cause for abdominal pain or discomfort. Denies any chance of . No urinary complaints or vaginal bleeding. She was otherwise in her normal state of health last week. Related Data Allergies Allergy/AdvReac Type Severity Reaction Status Date / Time No Known Allergies Allergy Verified 04/20/24 12:25 Review of Systems 2 Review of Systems: As reviewed above in HPI [facility] Past Medical History Medical History History of asthma Social History Social History Smoking status: Never smoker Exam 2 Narrative: GENERAL: [Well-appearing, well-nourished, and in no acute distress.] HEAD: [Normocephalic, atraumatic.] EYES: [PERRLA and EOMI.] ENT: Nares clear, no rhinorrhea or epistaxis. Mucous membranes moist. NECK: Supple. CHEST: [Clear to auscultation. No respiratory distress.] HEART: [Regular rate and rhythm]. No murmur heard. [Normal peripheral pulses.] ABDOMEN: [Soft, nondistended], some mild tenderness to palpation left upper quadrant but no rebound or guarding, no signs of peritonitis. EXTREMITIES: Normal range of motion. [No edema.] SKIN: Warm, dry, no rash. NEURO: [No focal deficits]. Alert and oriented [x3.] PSYCH: [Normal mood and affect.] Course Vital Signs Vital signs: Vital Signs Temperature 36.6 C 04/20/24 11:58 Pulse Rate 98 04/20/24 11:58 Respiratory Rate 16 04/20/24 11:58 Pulse Oximetry 100 04/20/24 11:58 Oxygen Delivery Room Air 04/20/24 11:58 Temperature 36.6 C 04/20/24 11:58 Pulse Rate 82 04/20/24 15:17 Respiratory Rate 18 04/20/24 15:17 Blood Pressure 149/63 H 04/20/24 15:17 Pulse Oximetry 100 04/20/24 15:17 Oxygen Delivery Room Air 04/20/24 11:58 MDM - Abdominal Pain MDM Narrative Medical decision making narrative: 38-year-old female presenting with multiple complaints. Seemingly unrelated complaints such as left-sided abdominal pain, headache, paresthesias in her fingertips, head pressure sensation. Patient states that she has had the symptoms on on since Monday however her family times and states that she has had similar complaints for many years with no diagnostic findings. Patient states her symptoms presently include left-sided upper abdominal pain and a headache. She states the numbness in her fingers has resolved. She has a soft nondistended abdomen with some very mild tenderness to palpation focally in the left upper quadrant. No ribcage pain or tenderness. Clear breath sounds throughout. Reassuring vital signs although she is slightly tachycardic with a pulse of 114. No hypoxia or fever. She states she has a history of anemia. Blood was obtained including CBC, CMP, lipase, test urinalysis. CT abdomen pelvis with IV contrast obtained with attention to left upper quadrant. She was given morphine in fluid resuscitation for symptom control and re- evaluated. No leukocytosis or anemia. Normal electrolytes, normal renal and hepatic function panel. Urinalysis with some red blood cells and white blood cells but contamination with many squamous cells. Patient just completed her cycle. No clinical suspicion for urinary infection at this time. Will send for culture but no empiric antibiotics are necessary at this time. Abdominal CT shows a left ovarian cyst measuring 3.6 x 4.2 cm. No other acute process. This could be the source the patient has intermittent pain, clinically very low suspicion for ovarian torsion at this time but is not to say that she is not having intermittent twisting of the cyst was assisted self causing the discomfort intermittently. Does go with patient's history of longstanding intermittent pain in the left side. Patient was re-evaluated had improvement her pain. We did order an ultrasound to better characterize the cyst which revealed to be patent with good vascular flow in a cyst measuring approximately 3.2 x 3.5 cm with suspicion for hemorrhagic cyst. No ovarian torsion is evident on the ultrasound. Patient was re-evaluated with improvement her pain at this time is stable for discharge home with OBGYN follow-up. She will be given NSAIDs for pain control and return precautions. Medical Records Attestation: I reviewed the patient's medical records. Lab Data Attestation: I reviewed the patient's lab results. 04/20/24 12:08 04/20/24 12:08 Labs: Lab Results 04/20/24 04/20/24 04/20/24 Range/Units 12:08 12:18 13:07 WBC 9.2 (4.5-10.0) K/mm3 RBC 4.42 (4.2-5.4) M/mm3 Hgb 12.1 (12.0-15.0) g/dL Hct 38.7 (37.0-47.0) % MCV 87.6 (80-100) fl MCH 27.4 (26-34) pg MCHC 31.3 L (32-36) g/dl RDW 14.9 H (11.5-14.5) % Plt Count 285 (150-375) k/mm3 MPV 11.3 H (7.4-10.4) fl Immature Gran % (Auto) 0.2 (0-0.5) % Neut % (Auto) 79.3 H (45.5-73.1) % Lymph % (Auto) 15.7 L (18.3-44.2) % [place] % (Auto) 4.2 (2.6-8.5) % Eos % (Auto) 0.3 (0-4.4) % Baso % (Auto) 0.3 (0.2-1.2) % Lymph # (Auto) 1.45 (0.9-3.2) K/mm3 [place] # (Auto) 0.4 (0.1-0.6) K/mm3 Eos # (Auto) 0.0 (0-0.3) K/mm3 Baso # (Auto) 0.0 (0.0-0.1) K/mm3 Abs Immat Gran (auto) 0.02 (0.00-0.031) K/mm3 Absolute Neuts (auto) 7.3 H (1.3-6.7) K/mm3 Absolute Nucleated RBC 0.000 (0.0-0.012) K/mm3 Nucleated RBC % 0.0 (0.0-0.2) % Sodium 137 (137-145) mmol/L Potassium 4.1 (3.4-5.0) mmol/L Chloride 105 (98-107) mmol/L Carbon Dioxide 25 (22-30) mmol/L Anion Gap 7 (4-12) mmol/L BUN 16 (7-17) mg/dL Creatinine 0.80 (0.7-1.0) mg/dL Estim Creat Clear Calc Not Reportable Estimated GFR > 60 (59 - ) Glucose 117 H (65-110) mg/dL Calcium 9.2 (8.4-10.2) mg/dL Total Bilirubin 0.4 (0.2-1.3) mg/dL AST 37 H (14-36) U/L ALT 28 (6-35) U/L Alkaline Phosphatase 65 (38-126) U/L Total Protein 9.0 H (6.3-8.2) g/dL Albumin 4.7 (3.5-5.1) g/dL Lipase 372 H (23-300) U/L Urine Color Yellow (Yellow) Urine Appearance Cloudy H (Clear) Urine pH 6.5 (5.0-9.0) Ur Specific [place] 1.015 (1.001-1.035) Urine Protein Negative (Negative) mg/dL Urine Glucose (UA) Negative (Negative) mg/dL Urine Ketones Trace H (Negative) mg/dL Ur Blood (Man) 3+ H (Negative) Urine Nitrate Negative (Negative) Urine Bilirubin Negative (Negative) Urine Urobilinogen 0.2 (<2.0) mg/dL Leukocyte Esterase Rfl 1+ H (Negative) BRO/UL Urine RBC 21-50 H (0-2) /hpf Urine WBC 11-20 H (0-3) /hpf Ur Squamous Epith Cells Many H (Few) /hpf Urine Bacteria None seen /hpf Urine Casts 0-2 Urine Test Negative Influenza A (RT-PCR) Negative (Negative) Influenza B (RT-PCR) Negative (Negative) SARS-CoV-2 RNA (RT-PCR) Negative (Negative) Imaging Data Attestation: I personally reviewed and interpreted this imaging study as follows: My impression: Impressions Chest X-Ray 04/20/24 12:42 IMPRESSION: 1. No acute cardiopulmonary disease. Abdomen/Pelvis CT 04/20/24 14:19 IMPRESSION: 3.6 x 4.2 cm left ovarian cyst Pelvis Ultrasound 04/20/24 16:33 IMPRESSION: Ovarian cyst; no ovarian torsion is evident Radiologist's impression: ITS Impressions Chest X-Ray 04/20/24 12:42 IMPRESSION: 1. No acute cardiopulmonary disease. Abdomen/Pelvis CT 04/20/24 14:19 IMPRESSION: 3.6 x 4.2 cm left ovarian cyst Pelvis Ultrasound 04/20/24 16:33 IMPRESSION: Ovarian cyst; no ovarian torsion is evident Discharge Plan Discharge Clinical Impression: Ovarian cyst, Hemorrhagic cyst of left ovary Patient Disposition: Home, Self-Care Condition: Stable Instructions: Antibiotic Form, Ovarian Cyst (ED), Ovarian Cyst Removal (DC) Additional Instructions: Your symptoms are likely explained by the ovarian cyst we found on your left- sided abdomen during her CT and ultrasound today. No complications from the system there is no torsion. Will refer to an clinical reimbursement specialist to evaluate you on outpatient basis. If his causing recurrent problems that might need to be intervention such as a surgical removal. If you have any persistent pain, developing intractable nausea, vomiting or any other symptoms please return to the emergency department otherwise you can take Tylenol and ibuprofen for symptom control. Patient Language: Polish Prescriptions: New ketorolac 10 mg tablet 10 mg PO Q8H PRN (Reason: pain) 5 Days Qty: 20 0RF Rx Instructions: maximum total duration of 5 days from all oral, intranasal, or parenteral formulations No Action amoxicillin 875 mg tablet 875 mg PO Q12H 10 Days Qty: 20 0RF ibuprofen 600 mg tablet 600 mg PO Q6H PRN (Reason: pain) Qty: 30 0RF Follow-up/Referrals: Rolando Littlejohn MD [Physician] - 1 Week (Ovarian cyst, symptomatic) Michael,RUSLAN Benz [Primary Care Provider] - Time of Disposition: 16:49
[2024-04-20 12:25] LABS: Alanine Aminotransferase 28 U/L (6-35); Albumin Level 4.7 g/dL (3.5-5.1); Alkaline Phosphatase 65 U/L (38-126); Anion Gap 7 mmol/L (4-12); Aspartate Amino Transferase 37 U/L (14-36); Bilirubin,Total 0.4 mg/dL (0.2-1.3); Blood Urea Nitrogen 16 mg/dL (7-17); Calcium 9.2 mg/dL (8.4-10.2); Carbon Dioxide 25 mmol/L (22-30); Chloride 105 mmol/L (98-107); Estimated Glomerular Filt Rate > 60; Glucose 117 mg/dL (65-110); Lipase 372 U/L (23-300); Potassium 4.1 mmol/L (3.4-5.0); Sodium 137 mmol/L (137-145)
[2024-04-20] MEDS: LACTATED RINGERS 1,000 ML 999 ML IV CONT (12:26)
[2024-04-20] MEDS: ONDANSETRON INJ 4 MG/2 ML VIAL IV PUSH (12:27)
[2024-04-20] MEDS: MORPHINE SULFATE (*CRX) 4 MG/ML INJ IV PUSH (12:28)
[2024-04-20 12:59] LABS: Influenza A QL RT-PCR Negative (Negative); Influenza B QL RT-PCR Negative (Negative); SARS-CoV-2 RNA PCR Negative (Negative)
[2024-04-20 13:18] LABS: Add Urine Microscopic? YES; Appearance Urine Cloudy (Clear); Bacteria Urine None Seen /hpf; Bilirubin Urine Negative (Negative); Blood Urine 3+ (Negative); Color Urine Yellow (Yellow); Glucose Urine UA Negative (Negative); Ketones Urine Trace mg/dL (Negative); Leukocyte Esterase Ur 1+ LEU/UL (Negative); Nitrate Urine Negative (Negative); Non Pathogenic Casts 0-2; Protein Urine Negative (Negative); RBC Urine 21-50 /hpf (0-2); Specific Grav Ur 1.015 (1.001-1.035); Squamous Epithelial Cell Urine Many /hpf (Few); Urobilinogen Urine 0.2 mg/dL (<2.0); pH Urine 6.5 (5.0-9.0)
[2024-04-20 13:48] LABS: Pregnancy On Board Control Positive; Urine Pregnancy Test Negative
== END 2024-04-20 17:03 | disposition home or self-care (01) ==
PROVIDERS: Emergency Provider Student in an Organized Health Care Education/Training Program; PCP Physician Assistant
DX: N83.202 Unspecified ovarian cyst, left side (principal); Z20.822 Contact with and (suspected) exposure to COVID-19; J45.909 Unspecified asthma, uncomplicated
CPT/HCPCS: 36415; 71045; 74177; 76856; 80053; 81001; 81025; 83690; 85025; 87086; 87636; 96361; 96374; 96375; 99284; J2270; J2405; J7120; Q9967

== ENCOUNTER 2024-06-28 19:19 | Emergency (ER) | payer BC, SELFPAY ==
[2024-06-28 19:26] VITALS: BP 138/87; PULSE 106; RESP 18; TEMP 37.3; O2SAT 100
--- NOTE | 2024-06-28 19:43 | ED.DENTAL ---
HPI - Dental/Oral General Chief complaint: Dental/Oral Stated complaint: Dental Pain Time Seen by Provider: 06/28/24 19:43 Source: patient Mode of arrival: ambulatory Limitations: no limitations History of Present Illness HPI Narrative: 38-year-old female presents with complaint of left upper dental pain for 2 days. Afebrile. Patient has appointment scheduled with dentist July 03. Has been taking Tylenol at home to treat pain. All systems reviewed and negative except as noted above. Related Data Allergies Allergy/AdvReac Type Severity Reaction Status Date / Time No Known Allergies Allergy Verified 06/28/24 19:26 Review of Systems Review of Systems: CONSTITUTIONAL: Denies fever, chills, or sweats. EYES: Denies visual changes, redness, or discharge. ENT: Denies rhinorrhea, congestion, sore throat, or otalgia. Reports left upper dental pain. CARDIOVASCULAR: Denies chest pain, palpitations, or edema. RESPIRATORY: Denies cough or dyspnea. GASTROINTESTINAL: Denies abdominal pain, nausea, vomiting, or diarrhea. GENITOURINARY: Denies dysuria or hematuria. SKIN: Denies rash or itching. MUSCULOSKELETAL: Denies back pain, joint pain, or myalgia. NEUROLOGIC: Denies headache, numbness, or weakness. PSYCHIATRIC: Denies anxiety or depression. All other systems reviewed are negative, except as documented in HPI. [facility] Past Medical History Medical History History of asthma Social History Social History Smoking status: Never smoker Comments At time of signature, agree with nursing past medical, surgical, social and family history. There is no relevant family history pertinent to the presenting complaint. Exam Narrative: GENERAL: This is a well-nourished, well-developed patient, in no apparent distress. HEAD: normocephalic, atraumatic. EYES: PERRL. Sclera clear/white. Vision is grossly intact. EARS: External ears normal NOSE: External nose normal MOUTH: TENDERNESS TO TOOTH #13 WITH DECAY NECK: Neck supple, non-tender without lymphadenopathy, masses or thyromegaly. CARDIOVASCULAR: Regular rate and rhythm without murmurs, gallops, or rubs. RESPIRATORY: Clear to auscultation. Breath sounds equal bilaterally. No wheezes, rales, or rhonchi. SKIN: warm, Dry, intact with no suspicious lesions or rash, good texture and turgor. NEURO: awake, alert, and oriented to person, place and time. There were no obvious focal neurologic abnormalities. EXTREMITIES: No joint tenderness, effusion, or edema noted. Course Course Level of Care: Express Care Visit Vital Signs Vital signs: Vital Signs Temperature 37.3 C 06/28/24 19:26 Pulse Rate 106 H 06/28/24 19:26 Respiratory Rate 18 06/28/24 19:26 Blood Pressure 138/87 06/28/24 19:26 Pulse Oximetry 100 06/28/24 19:26 Oxygen Delivery Room Air 06/28/24 19:26 Temperature 37.3 C 06/28/24 19:26 Pulse Rate 106 H 06/28/24 19:26 Respiratory Rate 18 06/28/24 19:26 Blood Pressure 138/87 06/28/24 19:26 Pulse Oximetry 100 06/28/24 19:26 Oxygen Delivery Room Air 06/28/24 19:26 REVIEWED MDM - Dental/Oral MDM Narrative Medical decision making narrative: will treat left upper dental pain with antibiotic. Patient has appointment with Dentist in 5 days. Please be advised this is a medical document. It is intended for [id number] communication. It is written in medical language and may contain unfamiliar abbreviations or verbiage. Medical documents are intended to carry relevant information, facts as evident, and the clinical opinion of the practitioner at the time of the encounter. This report may have been done utilizing a voice recognition system. Attempts have been made to correct errors. However, there may be uncorrected grammatical, spelling, and recognition errors present. The file time of this note does not necessarily represent the time of service. Discharge Plan Discharge Clinical Impression: Toothache Patient Disposition: Home, Self-Care Condition: Stable Instructions: Antibiotic Form, Toothache (ED) Additional Instructions: Take antibiotic as prescribed until gone. Alternate between ibuprofen and Tylenol every 4 hours to treat pain. Follow-up with dentist at scheduled appointment. Patient Language: Upper Sorbian Prescriptions: New ibuprofen 800 mg tablet 800 mg PO TID PRN (Reason: pain) Qty: 30 0RF amoxicillin 875 mg tablet 875 mg PO Q12H 10 Days Qty: 20 0RF Follow-up/Referrals: Michael,RUSLAN Benz [Primary Care Provider] - Time of Disposition: 19:48
== END 2024-06-28 19:55 | disposition home or self-care (01) ==
PROVIDERS: Emergency Provider Nurse Practitioner Family; PCP Physician Assistant
DX: K08.89 Other specified disorders of teeth and supporting structures (principal); J45.909 Unspecified asthma, uncomplicated
CPT/HCPCS: 99213; G0463

== ENCOUNTER 2024-10-23 14:28 | Emergency (ER) | payer BC, SELFPAY ==
[2024-10-23 14:38] VITALS: BP 131/86; PULSE 106; RESP 20; TEMP 37.2; O2SAT 100
--- NOTE | 2024-10-23 14:59 | ED.GENADULT ---
HPI - General Adult General Chief complaint: Dizziness Stated complaint: Dizziness/Pain Under Left Breast Source: patient Mode of arrival: ambulatory Limitations: no limitations History of Present Illness HPI narrative: Patient is a 38-year-old female presenting with complaint of dizziness, pain under her left breast. Additional symptoms reported include nausea, diarrhea. Symptoms began on Monday. Dizziness is worse with positional changes. Reports normal p.o. intake today. Denies chest pain, shortness of breath, lower extremity edema, recent travel. reports taking Tylenol for pain, no improvement. no Additional complaints. Related Data Allergies Allergy/AdvReac Type Severity Reaction Status Date / Time No Known Allergies Allergy Verified 10/23/24 15:08 Review of Systems Review of Systems: CONSTITUTIONAL: Denies body aches, fever, chills, or sweats. EYES: Denies visual changes, redness, or discharge. ENT: Denies rhinorrhea, congestion, sore throat, or otalgia. CARDIOVASCULAR: Denies chest pain, palpitations, or edema. RESPIRATORY: Denies cough or dyspnea. GASTROINTESTINAL: Reports abdominal pain, nausea, diarrhea, denies vomiting GENITOURINARY: Denies dysuria or hematuria. SKIN: Denies rash, itching, or wounds. MUSCULOSKELETAL: Denies back pain, joint pain, or myalgia. NEUROLOGIC: reports dizziness, Denies headache, numbness, tingling, or weakness. PSYCH: Denies depression or anxiety. All systems reviewed & are unremarkable except as noted in HPI and below PMFSH Past Medical History Medical History History of asthma Social History Social History Smoking status: Never smoker Exam Narrative: GENERAL: Well-appearing, well-nourished, uncomfortable, and in no acute distress. HEAD: Normocephalic, atraumatic. EYES: EOMI. No redness or drainage. Conjunctivae normal. ENT: Mucous membranes pink and moist. Nares clear. No rhinorrhea. TMs normal bilaterally. Throat normal. Uvula midline. NECK: Normal AROM. Supple. No lymphadenopathy. CHEST: No respiratory distress. Clear to auscultation. HEART: Regular rate and rhythm. No murmur appreciated. Normal peripheral pulses. ABDOMEN: left upper quadrant TTP, Soft, normal active bowel sounds. MUSCULOSKELETAL: No bony tenderness. EXTREMITIES: Normal range of motion. No edema. SKIN: Warm, dry, no rash. Capillary refill normal. Normal skin turgor. NEURO: No focal deficits. Alert and oriented x3. Gait steady. PSYCH: Normal affect. No signs of depression or anxiety. Course Course Emergency Course: given the patient's reported symptoms, physical examination findings, I recommended she be transferred to ER for choice for further diagnostic workup. She requested to be transferred into the ER. Verbal report given to Dr. Storey. No additional workup performed here today. Level of Care: Express Care Visit Vital Signs Vital signs: Vital Signs Temperature 99.0 F 10/23/24 14:38 Pulse Rate 106 H 10/23/24 14:38 Respiratory Rate 10/23/24 14:38 Blood Pressure 131/86 10/23/24 14:38 Pulse Oximetry 100 10/23/24 14:38 Oxygen Delivery Room Air 10/23/24 14:38 Temperature 99.0 F 10/23/24 14:38 Pulse Rate 106 H 10/23/24 14:38 Respiratory Rate 10/23/24 14:38 Blood Pressure 131/86 10/23/24 14:38 Pulse Oximetry 100 10/23/24 14:38 Oxygen Delivery Room Air 10/23/24 14:38 Medical Decision Making Vital Signs Vital Signs: Vital Signs Temperature 99.0 F 10/23/24 14:38 Pulse Rate 106 H 10/23/24 14:38 Respiratory Rate 10/23/24 14:38 Blood Pressure 131/86 10/23/24 14:38 Pulse Oximetry 100 10/23/24 14:38 Oxygen Delivery Room Air 10/23/24 14:38 Temperature 99.0 F 10/23/24 14:38 Pulse Rate 106 H 10/23/24 14:38 Respiratory Rate 20 10/23/24 14:38 Blood Pressure 131/86 10/23/24 14:38 Pulse Oximetry 100 10/23/24 14:38 Oxygen Delivery Room Air 10/23/24 14:38 Discharge Plan Discharge Clinical Impression: Abdominal pain, LUQ, Nausea, Dizziness Patient Disposition: Acute Care Hospital Condition: Stable Patient Language: Mongolian Follow-up/Referrals: Michael,RUSLAN Benz [Primary Care Provider] - Time of Disposition: 15:22
== END 2024-10-23 15:33 | disposition short-term general hospital (02) ==
PROVIDERS: Emergency Provider Registered Nurse; PCP Physician Assistant
DX: R10.12 Left upper quadrant pain (principal); R11.0 Nausea; R42 Dizziness and giddiness
CPT/HCPCS: 99213; G0463

== ENCOUNTER 2024-10-23 16:59 | Emergency (ER) | payer BC, SELFPAY ==
--- NOTE | ~2024-10-23 | US_ITS ---
EXAM: PELVIC ULTRASOUND HISTORY: left ovarian cyst . Last menstrual period is given as 10/08/2024. 0 para 0 COMPARISON: Reference is made to CT examination of the abdomen and pelvis performed approximately 1 h our earlier. FINDINGS: UTERUS: 10.3 x 4.4 x 6.3 cm. The uterus is anteverted and anteflexed. The endometrial complex is thickened and measures 27 mm. RIGHT OVARY: The right ovary is unremarkable in echogenicity and size measuring 3.5 x 1.6 x 1.7 cm. Dopplerable flow is identified. LEFT OVARY: The left ovary is heterogeneous in echogenicity and increased in size measuring 5.5 x 4.2 x 4.1 cm Dopplerable flow is identified. A complex avascular structure is identified within the left ovary measuring 3.4 x 3.5 x 3.0 cm, consi stent with a hemorrhagic cyst. No free fluid is identified within the pelvis. IMPRESSION: Thickened endometrial complex. Hemorrhagic cyst measuring 3.5 cm in greatest dimension. No ovarian torsion. Of note, this is the patient's third presentation of a left-sided hemorrhagic cyst in as many years. PRINTING PRESSMAN consultation is recommended. Reviewed, dictated and finalized at location A. IMPRESSION: Thickened endometrial complex. Hemorrhagic cyst measuring 3.5 cm in greatest dimension. No ovarian torsion. Of note, this is the patient's third presentation of a left-sided hemorrhagic c yst in as many years. PRINTING PRESSMAN consultation is recommended.
--- NOTE | ~2024-10-23 | XR_ITS ---
CHEST RADIOGRAPH CLINICAL HISTORY: LUQ abd pain X 3 DAYS . COMPARISON: 04/20/2024 TECHNIQUE: Single portable view of the chest. FINDINGS The cardiomediastinal silhouette is unremarkable. The lungs are clear. IMPRESSION: No focal infiltrate or effusion. Reviewed, dictated and finalized at location A.
--- NOTE | ~2024-10-23 | CT_ITS ---
CLINICAL INDICATION: Left upper quadrant pain COMPARISON: 04/20/2024, which demonstrated a left ovarian cyst. TECHNIQUE: Multiple contiguous axial images of the abdomen and pelvis were performed following the ad ministration of with 100 mL Omnipaque-350 intravenous contrast The dose-length product (DLP) was 314.65 mGy-cm. Automated exposure control and iterative reconstruction technique were employed. FINDINGS/OBSERVATIONS: Visualized lower thorax: The bilateral lung bases are clear. The heart is of normal size, without pericardial effusion. Small hiatal hernia is present. Liver: The liver demonstrates homogeneous enhancement and is not enlarged. Gallbladder and biliary system: The gallbladder is only minimally distended, and otherwise unremarkable. Pancreas: The pancreas enhances homogeneously without ductal dilatation. Spleen: The spleen enhances homogeneously and is not enlarged. Kidneys: The bilateral kidneys enhance symmetrically without hydronephrosis or renal calculi. Adrenal glands: Unremarkable. Gastrointestinal tract: Fecal stasis within the colon. Appendix: The air-filled appendix is of normal caliber (axial series, images 110 through 124) Vasculature: Unremarkable. Lymph nodes: No pathologically enlarged or morphologically suspicious lymph nodes within the retroperitoneum or at the root of the mesentery. Pelvic structures: The bladder is decompressed, limiting its evaluation The uterus is anteverted and anteflexed. Redemonstration of a cystic focus within the left hemipelvis measuring 4.2 x 3.7 x 3.8 cm. No free fluid is identified within the pelvis. Bulky calcifications within the right hemipelvis. Body wall and musculoskeletal: Small fat-containing umbilical hernia. No significant degenerative disease within the lower thoracic or lumbosacral spine. IMPRESSION: Redemonstration of a left ovarian cyst, similar in size compared with previous examination dated 04/01. No additional pathology is appreciated. Reviewed, dictated and finalized at location A. IMPRESSION: Redemonstration of a left ovarian cyst, similar in size compared with previous examination dated 04/20/2024. No additional pathology is appreciated.
[2024-10-23 17:03] VITALS: BP 142/82; PULSE 117; RESP 22; TEMP 36.8; O2SAT 99
[2024-10-23 19:14] LABS: Add Urine Microscopic? NO; Appearance Urine Clear (Clear); Bilirubin Urine Negative (Negative); Blood Urine Negative (Negative); Color Urine Yellow (Yellow); Glucose Urine UA Negative (Negative); Ketones Urine Negative (Negative); Leukocyte Esterase Ur Negative LEU/UL (Negative); Nitrate Urine Negative (Negative); Protein Urine Negative (Negative); Specific Grav Ur 1.026 (1.001-1.035); Urobilinogen Urine 0.2 mg/dL (<2.0)
--- NOTE | 2024-10-23 19:38 | ECG_ITS ---
Test Date: 2024-10-23 20:06:04 Measurements Intervals [place] Rate: 89 P: 58 [place]: 162 QRS: 25 QRSD: 87 T: 30 QT: 326 QTc: 399 Interpretive Statements SINUS RHYTHM NORMAL ECG No previous ECG available for comparison Electronically Signed On 10-23-2024 20:52:22 CDT by Cristian Helm D.O.
--- NOTE | 2024-10-23 19:39 | ED.ABDPAIN ---
HPI - Abdominal Pain General Chief Complaint: Abdominal Pain Stated Complaint: abd pain Time Seen by Provider: 10/23/24 19:12 History of Present Illness HPI narrative: 38-year-old female with reported history of endometriosis presents to emergency department for left upper quadrant abdominal pain x2 days. Patient reports the pain feels like a pressure. She states she had 2 episodes of diarrhea today. Reports associated nausea. Denies vomiting, fevers, cough or congestion, chest pain or shortness of breath. Endorses decreased p.o. intake since the onset of symptoms. LMP 6/10. She is also reporting some dysuria. She denies vaginal discharge or concern for STDs. Related Data Allergies Allergy/AdvReac Type Severity Reaction Status Date / Time No Known Allergies Allergy Verified 10/23/24 15:08 Review of Systems Review of Systems: All systems reviewed & are unremarkable except as noted in HPI and below PMFSH Past Medical History Medical History History of asthma Social History Social History Smoking status: Never smoker Exam Narrative: GENERAL: Well-appearing, well-nourished, and in no acute distress. HEAD: Normocephalic, atraumatic. EYES: EOMI. ENT: Nares clear, no rhinorrhea or epistaxis. Mucous membranes dry. NECK: Supple. CHEST: Clear to auscultation. No respiratory distress. HEART: Regular rate and rhythm. No murmur heard. Normal peripheral pulses. ABDOMEN: Quiet bowel sounds. Abdomen soft with tenderness in the left upper quadrant. No rebound or rigidity. No CVA tenderness. EXTREMITIES: Normal range of motion. No edema. SKIN: Warm, dry, no rash. NEURO: No focal deficits. Alert and oriented x3 Course Vital Signs Vital signs: Vital Signs Temperature 98.2 F 10/23/24 17:03 Pulse Rate 117 H 10/23/24 17:03 Respiratory Rate 22 H 10/23/24 17:03 Blood Pressure 142/82 H 10/23/24 17:03 Pulse Oximetry 99 10/23/24 17:03 Oxygen Delivery Room Air 10/23/24 17:03 Temperature 98.2 F 10/23/24 17:03 Pulse Rate 95 10/24/24 00:35 Respiratory Rate 14 10/24/24 00:35 Blood Pressure 122/87 10/24/24 00:35 Pulse Oximetry 99 10/24/24 00:35 Oxygen Delivery Room Air 10/23/24 17:03 MDM - Abdominal Pain MDM Narrative Medical decision making narrative: 38-year-old female with reported history of endometriosis presents to the emergency department for left upper quadrant abdominal pain that started 2 days ago. Reports associated nausea and diarrhea. Vitals significant for tachycardia 117 tachypnea of 22. Patient is afebrile and nontoxic appearing. She does appear dry on exam and was started on IV fluids. EKG shows normal sinus rhythm with rate of 89 ppm, normal IN interval, normal QRS duration, normal QTC, no ischemic changes. Lab work shows no leukocytosis or anemia. Chemistries with mildly elevated BUN of 19, otherwise unremarkable. Liver enzymes normal. Lipase normal. UA unremarkable. is negative. Chest x-ray shows no acute cardiopulmonary findings. Lactic is not elevated. CT abdomen pelvis shows redemonstration of a left ovarian cyst similar in size compared to previous exam dated 04/10/2024 with no additional pathology detected. Pelvic ultrasound shows thickened endometrial complex, hemorrhagic cyst measuring 3.5 cm increased dimension and no ovarian torsion. No free fluid in the pelvis. Patient was updated on results. She received IV fluids, Pepcid, Zofran, morphine and Toradol with improvement. She is tolerating p.o. intake. Uncertain if patient's source of pain is referred from her ovarian cyst versus possible GI upset from gastroenteritis. Will provide naproxen and Pepcid for home and encouraged to follow-up closely with her PCP as well as OBGYN. Additionally I am uncertain of patient's source of thickened endometrial complex. Her LMP was 6/10. She denies any vaginal discharge, vaginal symptoms, concern for STDs. Again advised to follow-up with OBGYN regarding this as it was seen on her last US in March of 2024 as well. Discussed strict ED return precautions. She is agreeable with the plan verbalized understanding. Discharged in stable condition. Lab Data 10/23/24 19:23 10/23/24 19:23 Labs: Lab Results 10/23/24 10/23/24 10/23/24 Range/Units 18:25 19:23 20:01 WBC 9.7 (4.5-10.0) K/mm3 RBC 4.46 (4.2-5.4) M/mm3 Hgb 12.2 (12.0-15.0) g/dL Hct 39.3 (37.0-47.0) % MCV 88.1 (80-100) fl MCH 27.4 (26-34) pg MCHC 31.0 L (32-36) g/dl RDW 13.6 (11.5-14.5) % Plt Count 302 (150-375) k/mm3 MPV 11.3 H (7.4-10.4) fl Immature Gran % (Auto) 0.3 (0-0.5) % Neut % (Auto) 74.8 H (45.5-73.1) % Lymph % (Auto) 19.5 (18.3-44.2) % [place] % (Auto) 4.3 (2.6-8.5) % Eos % (Auto) 0.8 (0-4.4) % Baso % (Auto) 0.3 (0.2-1.2) % Lymph # (Auto) 1.90 (0.9-3.2) K/mm3 [place] # (Auto) 0.4 (0.1-0.6) K/mm3 Eos # (Auto) 0.1 (0-0.3) K/mm3 Baso # (Auto) 0.0 (0.0-0.1) K/mm3 Abs Immat Gran (auto) 0.03 (0.00-0.031) K/mm3 Absolute Neuts (auto) 7.3 H (1.3-6.7) K/mm3 Absolute Nucleated RBC 0.000 (0.0-0.012) K/mm3 Nucleated RBC % 0.0 (0.0-0.2) % Sodium 140 (137-145) mmol/L Potassium 4.1 (3.4-5.0) mmol/L Chloride 105 (98-107) mmol/L Carbon Dioxide 25 (22-30) mmol/L Anion Gap 10 (4-12) mmol/L BUN 19 H (7-17) mg/dL Creatinine 0.81 (0.7-1.0) mg/dL Estim Creat Clear Calc 72 ml/min Estimated GFR > 60 (59 - ) Glucose 106 (65-110) mg/dL Lactic Acid 0.6 L (0.7-2.0) mmol/L Calcium 9.3 (8.4-10.2) mg/dL Total Bilirubin 0.4 (0.2-1.3) mg/dL AST 30 (14-36) U/L ALT 21 (6-35) U/L Alkaline Phosphatase 58 (38-126) U/L Total Protein 8.2 (6.3-8.2) g/dL Albumin 4.5 (3.5-5.1) g/dL Lipase 268 (23-300) U/L Urine Color Yellow (Yellow) Urine Appearance Clear (Clear) Urine pH 6.0 (5.0-9.0) Ur Specific [place] 1.026 (1.001-1.035) Urine Protein Negative (Negative) mg/dL Urine Glucose (UA) Negative (Negative) mg/dL Urine Ketones Negative (Negative) mg/dL Ur Blood (Man) Negative (Negative) Urine Nitrate Negative (Negative) Urine Bilirubin Negative (Negative) Urine Urobilinogen 0.2 (<2.0) mg/dL Leukocyte Esterase Rfl Negative (Negative) BRO/UL POC Urine HCG, Qual (Negative) 10/23/ Range/Units 21:29 WBC (4.5-10.0) K/mm3 RBC (4.2-5.4) M/mm3 Hgb (12.0-15.0) g/dL Hct (37.0-47.0) % MCV (80-100) fl MCH (26-34) pg MCHC (32-36) g/dl RDW (11.5-14.5) % Plt Count (150-375) k/mm3 MPV (7.4-10.4) fl Immature Gran % (Auto) (0-0.5) % Neut % (Auto) (45.5-73.1) % Lymph % (Auto) (18.3-44.2) % [place] % (Auto) (2.6-8.5) % Eos % (Auto) (0-4.4) % Baso % (Auto) (0.2-1.2) % Lymph # (Auto) (0.9-3.2) K/mm3 [place] # (Auto) (0.1-0.6) K/mm3 Eos # (Auto) (0-0.3) K/mm3 Baso # (Auto) (0.0-0.1) K/mm3 Abs Immat Gran (auto) (0.00-0.031) K/mm3 Absolute Neuts (auto) (1.3-6.7) K/mm3 Absolute Nucleated RBC (0.0-0.012) K/mm3 Nucleated RBC % (0.0-0.2) % Sodium (137-145) mmol/L Potassium (3.4-5.0) mmol/L Chloride (98-107) mmol/L Carbon Dioxide (22-30) mmol/L Anion Gap (4-12) mmol/L BUN (7-17) mg/dL Creatinine (0.7-1.0) mg/dL Estim Creat Clear Calc ml/min Estimated GFR (59 - ) Glucose (65-110) mg/dL Lactic Acid (0.7-2.0) mmol/L Calcium (8.4-10.2) mg/dL Total Bilirubin (0.2-1.3) mg/dL AST (14-36) U/L ALT (6-35) U/L Alkaline Phosphatase (38-126) U/L Total Protein (6.3-8.2) g/dL Albumin (3.5-5.1) g/dL Lipase (23-300) U/L Urine Color (Yellow) Urine Appearance (Clear) Urine pH (5.0-9.0) Ur Specific [place] (1.001-1.035) Urine Protein (Negative) mg/dL Urine Glucose (UA) (Negative) mg/dL Urine Ketones (Negative) mg/dL Ur Blood (Man) (Negative) Urine Nitrate (Negative) Urine Bilirubin (Negative) Urine Urobilinogen (<2.0) mg/dL Leukocyte Esterase Rfl (Negative) BRO/UL POC Urine HCG, Qual Negative (Negative) Imaging Data Radiologist's impression: ITS Impressions Chest X-Ray 10/23/24 19:54 IMPRESSION: No focal infiltrate or effusion. Abdomen/Pelvis CT 10/23/24 21:46 IMPRESSION: Redemonstration of a left ovarian cyst, similar in size compared with previous examination dated 04/20/2024. No additional pathology is appreciated. Pelvis Ultrasound 06/25/25 23:06 IMPRESSION: Thickened endometrial complex. Hemorrhagic cyst measuring 3.5 cm in greatest dimension. No ovarian torsion. Of note, this is the patient's third presentation of a left-sided hemorrhagic cyst in as many years. WILDFIRE PREVENTION SPECIALIST consultation is recommended. Discharge Plan Discharge Clinical Impression: Abdominal pain, LUQ, Endometrial thickening on ultrasound Ovarian cyst Qualifiers: Laterality: left Qualified Code(s): N83.202 - Unspecified ovarian cyst, left side Patient Disposition: Home Condition: Stable Instructions: Antibiotic Form, Ovarian Cyst (ED), Abdominal Pain (ED) Additional Instructions: You were evaluated in the emergency department for left upper quadrant abdominal pain. You were found have a 3.5 cm left ovarian cyst which may be causing referred pain. Your pain may also be unrelated or due to gastroenteritis or GI upset as discussed. Your also found have a thickened endometrium. This was also seen on her last ultrasound in March in addition to your cyst. Please follow-up closely with OBGYN for further evaluation and management. Please take the anti-inflammatories and Pepcid as directed. Drink plenty of fluids. Follow up with her primary care provider. Return to the emergency department if you develops significantly worsening or changing pain, vomiting, fever, you are unable to keep down food or fluids, or other concerning symptoms. Patient Language: Polish Prescriptions: New ondansetron 4 mg tablet,disintegrating 4 mg PO Q8H Qty: 14 0RF naproxen 500 mg tablet 500 mg PO BID PRN (Reason: pain) Qty: 20 0RF famotidine 20 mg tablet 20 mg PO DAILY Qty: 14 0RF Follow-up/Referrals: Michael,RUSLAN Benz [Primary Care Provider] - Dariana Angelo MD [Physician] -
[2024-10-23 19:46] LABS: Basophils Percent Auto 0.3 % (0.2-1.2); Eosinophils Absolute Auto 0.1 K/mm3 (0-0.3); Eosinophils Percent Auto 0.8 % (0-4.4); Hematocrit 39.3 % (37.0-47.0); Hemoglobin 12.2 g/dL (12.0-15.0); Immature Granulocyte Absolute 0.03 K/mm3 (0.00-0.031); Immature Granulocyte Percent A 0.3 % (0-0.5); Lymphocytes Percent Auto 19.5 % (18.3-44.2); Mean Corpuscular Hemoglobin 27.4 pg (26-34); Mean Corpuscular Volume 88.1 fl (80-100); Mean Platelet Volume 11.3 fl (7.4-10.4); Monocytes Absolute Auto 0.4 K/mm3 (0.1-0.6); Monocytes Percent Auto 4.3 % (2.6-8.5); Neutrophils Absolute Auto 7.3 K/mm3 (1.3-6.7); Neutrophils Percent Auto 74.8 % (45.5-73.1); Platelet Count Result 302 k/mm3 (150-375); Red Blood Count 4.46 M/mm3 (4.2-5.4); Red Cell Distribution Width 13.6 % (11.5-14.5); White Blood Count 9.7 K/mm3 (4.5-10.0)
[2024-10-23 19:51] LABS: Alanine Aminotransferase 21 U/L (6-35); Albumin Level 4.5 g/dL (3.5-5.1); Alkaline Phosphatase 58 U/L (38-126); Anion Gap 10 mmol/L (4-12); Aspartate Amino Transferase 30 U/L (14-36); Bilirubin,Total 0.4 mg/dL (0.2-1.3); Blood Urea Nitrogen 19 mg/dL (7-17); Calcium 9.3 mg/dL (8.4-10.2); Carbon Dioxide 25 mmol/L (22-30); Chloride 105 mmol/L (98-107); Estimated CRCL calculation 72 ml/min; Estimated Glomerular Filt Rate > 60; Glucose 106 mg/dL (65-110); Lipase 268 U/L (23-300); Potassium 4.1 mmol/L (3.4-5.0); Sodium 140 mmol/L (137-145); Total Protein 8.2 g/dL (6.3-8.2)
[2024-10-23 20:14] LABS: Lactic Acid Reflex 0.6 mmol/L (0.7-2.0)
[2024-10-23] MEDS: SODIUM CHLORIDE 0.9% IV 1,000 ML 999 ML IV CONT (20:45)
[2024-10-23] MEDS: FAMOTIDINE 20 MG/2 ML VIAL IV PUSH (20:45)
[2024-10-23] MEDS: ONDANSETRON INJ 4 MG/2 ML VIAL IV PUSH (20:46)
[2024-10-23 21:15] VITALS: BP 113/84; PULSE 88; RESP 15; O2SAT 100
[2024-10-23 21:30] LABS: BEDSIDEPREGUCG Negative (Negative)
[2024-10-23] MEDS: MORPHINE SULFATE (*CRX) 4 MG/ML INJ IV PUSH (22:43)
[2024-10-23 23:30] VITALS: BP 118/85; PULSE 98; RESP 14; O2SAT 100
[2024-10-24] MEDS: KETOROLAC 30 MG/ML VIAL (*BKC) IV PUSH (00:11)
[2024-10-24 00:35] VITALS: BP 122/87; PULSE 95; RESP 14; O2SAT 99
== END 2024-10-24 00:40 | disposition home or self-care (01) ==
PROVIDERS: Emergency Medicine; Emergency Provider Physician Assistant; PCP Physician Assistant
DX: R42 Dizziness and giddiness (principal); J45.909 Unspecified asthma, uncomplicated; R11.0 Nausea; R10.12 Left upper quadrant pain
CPT/HCPCS: 36415; 71045; 74177; 76856; 80053; 81003; 81025; 83605; 83690; 85025; 93005; 96361; 96374; 96375; 99284; J1885; J2270; J2405; J7030; Q9967

== ENCOUNTER 2025-03-03 16:53 | Emergency (ER) | payer BC, SELFPAY ==
--- NOTE | ~2025-03-03 | CT_ITS ---
EXAMINATION: CT abdomen pelvis wo con DATE: 03/03/2025 18:09 INDICATION: Right flank pain. TECHNIQUE: Computed tomography (CT) of the abdomen and pelvis was performed without intravenous contrast. The dose-length product was 196.50 mGy-cm. Automated exposure control and iterative reconstruction technique were employed. COMPARISON: CT dated 10/23/2024 FINDINGS: Lung bases unremarkable. Heart size normal. No significant pleural or pericardial effusion. The liver, spleen, pancreas, adrenal glands and kidneys are unremarkable. No hydronephrosis. No definite renal or ureteral stone. There are coarse calcifications along the right lateral aspect of the uterus, likely calcified fibroid, unchanged. Gallbladder is contracted. No significant vascular abnormality. No lymphadenopathy. Mild lumbar spondylosis. Mild dextrocurvature of the lumbar spine. No acute osseous abnormality. Normal appendix. IMPRESSION: 1. No acute abdominal abnormality. Reviewed, dictated and finalized at location O. LING MACHINE OPERATOR
[2025-03-03 17:11] LABS: BEDSIDEPREGUCG Negative (Negative)
[2025-03-03 17:32] LABS: Add Urine Microscopic? YES; Appearance Urine Cloudy (Clear); Glucose Urine UA Negative (Negative); Leukocyte Esterase Ur 1+ LEU/UL (Negative); Need Manual Microscopic Reviewed; Nitrate Urine Negative (Negative); Non Pathogenic Casts 0-2; Specific Grav Ur 1.025 (1.001-1.035)
[2025-03-03 18:06] LABS: Hematocrit 35.2 % (37.0-47.0); Hemoglobin 10.7 g/dL (12.0-15.0); Immature Granulocyte Percent A 0.3 % (0-0.5); Lymphocytes Absolute Auto 1.68 K/mm3 (0.9-3.2); Mean Corpuscular HGB Conc 30.4 g/dl (32-36); Mean Corpuscular Hemoglobin 25.9 pg (26-34); Mean Corpuscular Volume 85.2 fl (80-100); Nucleated Red Blood Cells Absolute Auto 0.000 K/mm3 (0.0-0.012); Nucleated Red Blood Cells Perc 0.0 % (0.0-0.2); Platelet Count Result 339 k/mm3 (150-375); Red Blood Count 4.13 M/mm3 (4.2-5.4); White Blood Count 8.0 K/mm3 (4.5-10.0)
--- NOTE | 2025-03-03 18:09 | ED.FEMALEGU ---
HPI - Female Genitourinary General Chief complaint: Urogenital-Female Stated complaint: pain with urination. abdominal pain Time Seen by Provider: 03/03/25 17:11 Source: patient Mode of arrival: ambulatory Limitations: no limitations History of Present Illness HPI Narrative: Patient is a 39-year-old female who presents the ED with report of dysuria, right-sided abdominal pain. Patient reports having pain throughout her right-sided abdomen, right flank region, pain with urination since yesterday. Reports urinary frequency/urgency. Reports slight hematuria with wiping. Reports nausea, denies vomiting. Denies fevers. Denies history of kidney stones. Related Data Allergies Allergy/AdvReac Type Severity Reaction Status Date / Time No Known Allergies Allergy Verified 10/23/24 15:08 Review of Systems Review of Systems: All systems reviewed & are unremarkable except as noted in HPI. All systems reviewed & are unremarkable except as noted in HPI and below PMFSH Past Medical History Medical History History of asthma Social History Social History Smoking status: Never smoker Exam Narrative: GENERAL: Mildly uncomfortable appearing, well-nourished, non-toxic, in no acute distress. HEAD: Normocephalic, atraumatic. RESPIRATORY: Airway patent, respirations nonlabored. Clear to auscultation bilaterally, no rales, rhonchi, wheezing. CARDIOVASCULAR: Regular rate and rhythm without murmurs, rubs, or gallops. ABDOMINAL: Soft, tenderness to palpation throughout suprapubic region, right lower quadrant, tenderness throughout right CVA region. Nondistended. Normoactive BS. MUSCULOSKELETAL: Moves all extremities. No gross deformities. SKIN: Warm, dry, normal color. NEURO: A&O X3. Speech clear. Cranial nerves II-XII grossly intact. Steady gait. No ataxic movements. PSYCHIATRIC: Appropriate mood and affect. Normal interaction. MDM - Female Genitourinary MDM Narrative Medical decision making narrative: Patient presented to ED with right-sided abdominal and flank pain, dysuria. Vital signs upon arrival. Cbc without leukocytosis. Mild anemia noted at 10.7. Appears fairly consistent with previous records. BMP unremarkable. Stable kidney function. UA does appear acutely infectious, 1+ leuk esterase, 51-100 RBC/WBC, 1+ urine bacteria. Sent for culture. Patient given dose of Rocephin in the ED. CT scan of abdomen/pelvis was obtained and without acute abnormalities. No evidence of ureterolithiasis, pyelonephritis. Discussed lab and imaging findings with patient. She is feeling improved with supportive therapy in the ED. Patient safe for discharge home on oral antibiotics. Will prescribe Keflex. Will also prescribe Zofran for home. Given strict return precautions. Advised patient to follow-up closely with primary care doctor for urine culture results. Given strict return precautions. She is in agreement with plan. Feels comfortable going home. Discharged in stable condition. Medical Records Attestation: I reviewed the patient's medical records. Lab Data Attestation: I reviewed the patient's lab results. 03/03/25 17:55 03/03/25 17:55 Labs: Lab Results 03/03/25 03/03/25 03/03/25 Range/Units 17:08 17:10 17:55 WBC 8.0 (4.5-10.0) K/mm3 RBC 4.13 L (4.2-5.4) M/mm3 Hgb 10.7 L (12.0-15.0) g/dL Hct 35.2 L (37.0-47.0) % MCV 85.2 (80-100) fl MCH 25.9 L (26-34) pg MCHC 30.4 L (32-36) g/dl RDW 13.5 (11.5-14.5) % Plt Count 339 (150-375) k/mm3 MPV 11.6 H (7.4-10.4) fl Immature Gran % (Auto) 0.3 (0-0.5) % Neut % (Auto) 71.4 (45.5-73.1) % Lymph % (Auto) 21.1 (18.3-44.2) % [place] % (Auto) 5.4 (2.6-8.5) % Eos % (Auto) 1.3 (0-4.4) % Baso % (Auto) 0.5 (0.2-1.2) % Lymph # (Auto) 1.68 (0.9-3.2) K/mm3 [place] # (Auto) 0.4 (0.1-0.6) K/mm3 Eos # (Auto) 0.1 (0-0.3) K/mm3 Baso # (Auto) 0.0 (0.0-0.1) K/mm3 Abs Immat Gran (auto) 0.02 (0.00-0.031) K/mm3 Absolute Neuts (auto) 5.7 (1.3-6.7) K/mm3 Absolute Nucleated RBC 0.000 (0.0-0.012) K/mm3 Nucleated RBC % 0.0 (0.0-0.2) % Sodium 137 (137-145) mmol/L Potassium 4.3 (3.4-5.0) mmol/L Chloride 105 (98-107) mmol/L Carbon Dioxide 25 (22-30) mmol/L Anion Gap 7 (4-12) mmol/L BUN 19 H (7-17) mg/dL Creatinine 0.66 L (0.7-1.0) mg/dL Estim Creat Clear Calc Not Reportable Estimated GFR > 60 (59 - ) Glucose 106 (65-110) mg/dL Calcium 8.6 (8.4-10.2) mg/dL Urine Color Yellow (Yellow) Urine Appearance Cloudy H (Clear) Urine pH 8.0 (5.0-9.0) Ur Specific [place] 1.025 (1.001-1.035) Urine Protein Trace (Negative) mg/dL Urine Glucose (UA) Negative (Negative) mg/dL Urine Ketones Negative (Negative) mg/dL Ur Blood (Man) 2+ H (Negative) Urine Nitrate Negative (Negative) Urine Bilirubin Negative (Negative) Urine Urobilinogen 1.0 (<2.0) mg/dL Add Ur Microanalysis Reviewed Leukocyte Esterase Rfl 1+ H (Negative) BRO/UL Urine RBC 51-100 H (0-2) /hpf Urine WBC 51-100 H (0-3) /hpf Ur Squamous Epith Cells Occasional (Few) /hpf Urine Bacteria 1+ H /hpf Urine Casts 0-2 POC Urine HCG, Qual Negative (Negative) Imaging Data Attestation: I personally reviewed and interpreted this imaging study as follows: Radiologist's impression: ITS Impressions Abdomen/Pelvis CT 03/03/25 18:14 IMPRESSION: 1. No acute abdominal abnormality. Discharge Plan Discharge Clinical Impression: Right sided abdominal pain Urinary tract infection Qualifiers: Urinary tract infection type: acute cystitis Hematuria presence: with hematuria Qualified Code(s): N30.01 - Acute cystitis with hematuria Patient Disposition: Home Condition: Stable Instructions: Antibiotic Form, Urinary Tract Infection in Women (ED), Abdominal Pain (ED) Additional Instructions: Take antibiotics as prescribed for urinary tract infection. Stay well hydrated. Continue Tylenol/ibuprofen as needed for pain. Utilize Zofran as needed for nausea. Follow-up with your primary care doctor for further evaluation and urine culture results. Return to the ED if you experience worsening or severe pain, difficulty urinating, worsening blood in urine, persistent fevers, unable to keep down food/drink/antibiotics, or any other symptoms of concern. Patient Language: Amharic Prescriptions: New cephalexin 500 mg capsule 500 mg PO Q12H 7 Days Qty: 14 0RF ondansetron 4 mg tablet,disintegrating 4 mg PO Q8H PRN (Reason: nausea and vomiting) Qty: 15 0RF No Action ondansetron 4 mg tablet,disintegrating 4 mg PO Q8H Qty: 14 0RF naproxen 500 mg tablet 500 mg PO BID PRN (Reason: pain) Qty: 20 0RF famotidine 20 mg tablet 20 mg PO DAILY Qty: 14 0RF Follow-up/Referrals: Michael,RUSLAN Benz [Primary Care Provider, Family Practice] Time of Disposition: 18:54
[2025-03-03] MEDS: ACETAMINOPHEN 500 MG TABLET 1000 MG PO (18:19)
[2025-03-03 18:22] LABS: Anion Gap 7 mmol/L (4-12); Blood Urea Nitrogen 19 mg/dL (7-17); Calcium 8.6 mg/dL (8.4-10.2); Carbon Dioxide 25 mmol/L (22-30); Chloride 105 mmol/L (98-107); Estimated Glomerular Filt Rate > 60; Glucose 106 mg/dL (65-110); Potassium 4.3 mmol/L (3.4-5.0); Sodium 137 mmol/L (137-145)
[2025-03-03] MEDS: SODIUM CHLORIDE 0.9% IV 500 ML 999 ML IV CONT (18:23)
[2025-03-03] MEDS: ONDANSETRON INJ 4 MG/2 ML VIAL IV PUSH (18:23)
[2025-03-03] MEDS: MORPHINE SULFATE (*CRX) 4 MG/ML INJ IV PUSH (18:26)
[2025-03-03] MEDS: cefTRIAXone 1 GM in SODIUM CHLORIDE 0.9% IV 50 ML 100 ML IVPB (18:36)
[2025-03-03 19:16] VITALS: BP 111/73; PULSE 82; RESP 16; TEMP 37; O2SAT 100
== END 2025-03-03 19:17 | disposition home or self-care (01) ==
PROVIDERS: Emergency Medicine; Emergency Provider Physician Assistant; PCP Physician Assistant
DX: N30.01 Acute cystitis with hematuria (principal); R10.11 Right upper quadrant pain; R10.31 Right lower quadrant pain; J45.909 Unspecified asthma, uncomplicated
CPT/HCPCS: 36415; 74176; 80048; 81001; 81025; 85025; 87086; 96361; 96365; 96375; 99284; A9270; J0696; J2270; J2405; J7040

== ENCOUNTER 2025-04-28 16:25 | Emergency (ER) | payer BC, SELFPAY ==
--- NOTE | ~2025-04-28 | XR_ITS ---
EXAMINATION: XR wrist RT min 3V DATE: 04/28/2025 16:55 INDICATION: Distal right radial pain post trauma TECHNIQUE: Posteroanterior, ulnar deviation, oblique, and lateral views of the right wrist were obtained. COMPARISON: none FINDINGS: 2 mm ulnar minus variance. Bone alignment is otherwise normal. No fracture. Joint spaces are relatively preserved. Soft tissues are unremarkable. IMPRESSION: 1. 2 mm ulnar minus variance. Otherwise unremarkable right wrist radiographs with no acute osseous abnormality Reviewed, dictated and finalized at location A. [employer] IMPRESSION: 1. 2 mm ulnar minus variance. Otherwise unremarkable right wrist radiographs wi th no acute osseous abnormality
--- NOTE | 2025-04-28 16:30 | ED.UPPEXIN ---
HPI - Extremity Injury (Upper) General Chief Complaint: Extremity Injury, Upper Stated Complaint: R Hand Pain Time Seen by Provider: 04/28/25 16:39 Source: patient, RN notes reviewed and old records reviewed Mode of arrival: ambulatory Limitations: no limitations History of Present Illness HPI narrative: 39-year-old female presents to the [facility] with right radial aspect wrist pain. Reports that she was cleaning house and hit her wrist on a piece of furniture 2 days ago. Has taken Tylenol. Pain is worse with movement. No bruising or swelling noted. Positive radial pulse. No snuffbox tenderness Onset (ago): day(s) (2) Related Data Home Medications ?Medication ?Instructions ?Recorded ?Confirmed ?Last Taken ?Type No Home Medications 04/28/25 04/28/25 Unknown History Allergies Allergy/AdvReac Type Severity Reaction Status Date / Time No Known Allergies Allergy Verified 04/28/25 16:47 Review of Systems Review of Systems: All systems reviewed & are unremarkable except as noted in HPI and below Constitutional: Constitutional: Reports no additional constitutional complaints ENT: Reports system reviewed and no additional complaints, except as documented Cardiovascular: Cardiovascular: Reports no additional cardiovascular complaints, Denies chest pain and Denies dyspnea Respiratory: Respiratory: Reports no additional respiratory complaints, Denies chest congestion, Denies cough and Denies dyspnea Musculoskeletal: Musculoskeletal: Reports as per HPI, Reports arthralgias and Denies joint swelling Integumentary/Breasts: Skin/Breast: Reports system reviewed and no additional complaints, except as docu PMFSH Past Medical History Medical History History of asthma Social History Social History Smoking status: Never smoker Comments At the time of my signature, I reviewed and agree with the nursing past medical, surgical, social, and family history. There is no relevant family history pertinent to the patient complaint. Exam Const: General: cooperative, healthy appearing, comfortable, no acute distress, well developed, alert and well nourished Nutritional Appearance: well nourished Orientation/consciousness: patient oriented x3 Limitations: no limitations HENMT: Head: normal to inspection Eyes: General: appearance normal, both eyes and all related structures Alignment and Position: alignment normal Neck: Neck: normal visual inspection, full ROM, no lymphadenopathy and no meningeal signs Chest: Chest palpation & inspection: normal inspection of the chest Resp: Effort & Inspection: normal respiratory effort and able to speak in complete sentences Cardio: Rate: regular rate Skin: General skin exam: normal color and no rashes or lesions noted Neuro: General: patient oriented x3, gait normal, moves all extremities and no meningeal signs Cognition (Neuro): normal cognition Speech: normal speech Gait exam (Neuro): Normal gait present Extrem: General: normal to inspection, full ROM, capillary refill normal and normal gait Right upper extremity: elbow/forearm normal to inspection, wrist tenderness of the distal radius; not of the anatomic snuffbox and normal ROM; no swelling, no abrasions, no lacerations and no ecchymosis and Extremity exam: right hand normal to inspection, normal capillary refill and neuromotor exam normal Psych: Appearance: grossly normal and well kempt Mental Status: mental status grossly normal Speech and movement: Normal speech and movement present and Clear speech present Affect: normal affect Attitude: cooperative Course Course Level of Care: Express Care Visit Vital Signs Vital signs: Vital Signs Temperature 98.4 F 04/28/25 16:36 Pulse Rate 90 04/28/25 16:36 Respiratory Rate 16 04/28/25 16:36 Blood Pressure 129/84 04/28/25 16:36 Pulse Oximetry 100 04/28/25 16:36 Temperature 98.4 F 04/28/25 16:36 Pulse Rate 90 04/28/25 16:36 Respiratory Rate 16 04/28/25 16:36 Blood Pressure 129/84 04/28/25 16:36 Pulse Oximetry 100 04/28/25 16:36 reviewed MDM MDM Narrative Medical decision making narrative: patient sitting in exam room. Patient is nontoxic, vitals stable. Patient point tenderness distal radius without snuffbox tenderness. X-ray without fractures. Patient is appropriate for outpatient treatment with close follow-up Discharge instructions reviewed with patient, as well as provided in writing per nursing staff. The instructions also include specific and strict return/GO TO THE ER as well as f/u information. All questions have been answered, and the patient deny any further questions with discharge and discharge plan. Some parts of this dictation were generated by voice recognition software and may contain typographical and/or grammatical inaccuracies. Differential Diagnosis Differential Diagnosis: Differential diagnostic considerations for upper extremity injury include sprain/strain of wrist, fracture of wrist, finger sprain, dislocation of finger, fracture of hand, dislocation of shoulder, fracture of humerus, fracture of clavicle, laceration, tendon injury, carpal tunnel syndrome.? Lab Data [facility] Lab Attestation statement: I personally reviewed the patient's lab results. Labs: Reviewed Imaging Data Radiologist's impression: ITS Impressions Wrist X-Ray 04/28/25 17:00 IMPRESSION: 1. 2 mm ulnar minus variance. Otherwise unremarkable right wrist radiographs with no acute osseous abnormality EXAMINATION: XR wrist RT min 3V DATE: 04/28/2025 16:55 INDICATION: Distal right radial pain post trauma TECHNIQUE: Posteroanterior, ulnar deviation, oblique, and lateral views of the right wrist were obtained. COMPARISON: none FINDINGS: 2 mm ulnar minus variance. Bone alignment is otherwise normal. No fracture. Joint spaces are relatively preserved. Soft tissues are unremarkable. IMPRESSION: 1. 2 mm ulnar minus variance. Otherwise unremarkable right wrist radiographs with no acute osseous abnormality Discharge Plan Discharge Clinical Impression: Contusion of right wrist, initial encounter Patient Disposition: Home Condition: Stable Instructions: Antibiotic Form, Contusion in Adults (ED) Additional Instructions: Your Xray did not show a fracture. Ice should be applied to help reduce swelling. It can be used for 20 to 30 minutes, every 2-3 hours while awake. Do not apply ice directly to your skin. An Ahsan wrap or wrist support can help with the discomfort You can alternate ibuprofen 600mg and Tylenol 650mg every 4 hours as needed for pain Please schedule a follow-up visit with your personal physician for further evaluation and treatment within 2 weeks especially if symptoms persist. For new or worsening symptoms go directly to the emergency room Patient Language: Palestinian Prescriptions: No Action No Home Medications Follow-up/Referrals: UNKNOWN,DOCTOR [Primary Care Provider] Time of Disposition: 17:17
[2025-04-28 16:36] VITALS: BP 129/84; PULSE 90; RESP 16; TEMP 36.9; O2SAT 100
== END 2025-04-28 17:22 | disposition home or self-care (01) ==
PROVIDERS: Emergency Provider Nurse Practitioner
DX: S60.211A Contusion of right wrist, initial encounter (principal); W22.8XXA Striking against or struck by other objects, initial encounter; J45.909 Unspecified asthma, uncomplicated
CPT/HCPCS: 73110; 99213; G0463